=== PATIENT | male | born 1995 | race African-American/Black ===

== ENCOUNTER 2016-05-04 11:48 | Emergency (ER) | payer BC ==
[~2016-05-04] VITALS: Ht 170.2 cm; Wt 72.6 kg
[~2016-05-04 11:48] MED LIST: ALPR1T PO; BSP5T PO; CONCERTA; DICY20TA57 PO; HYOS0.1283 SL; LORA-404 PO; ONDA-42 SL; ONDA4TAB8 PO; SUCR1TAB23 PO; TRAM-42 PO; buspar PO
--- OUTSIDE RECORDS SUMMARY | 2016-05-04 11:54 | XMS REPORT | Continuity of Care Document ---
Author Author [facility] Organization [facility] Address Unknown Phone Unavailable Care Team Providers Care Entry Tech Name Role Phone NO, LOCAL PHYSICIAN PCP Unavailable Insurance Providers Payer Name Policy Number Subscriber Name Relationship [facility] [id number] Tito Rodriguez Sr 18 Father Advance Directives Directive Response Recorded Date/Time Advance Directives No 02/06/16 10:55am Organ Donor Yes 07/09/15 2:02pm Resuscitation Status Full Code 02/06/16 10:55am Chief Complaint and Reason for Visit Chief Complaint Lower Extremity Reason for Visit Sprain of knee Problems Active Problems Medical Problem Onset Date Status Alcohol use Unknown Acute Anxiety Unknown Acute Dehydration Unknown Acute Gastritis Unknown Acute Irritable bowel syndrome Unknown Acute Nausea and vomiting Unknown Acute Nausea and vomiting Unknown Acute Sprain of knee Unknown Acute Vomiting Unknown Acute Medications Current Home Medications Medication Dose Units Route Directions Days/Qty Instructions Start Date Tramadol Hcl 50 Mg 50 Mg Oral Three Times A Day as needed for Pain 02/06/16 Past Home Medications Medication Directions Ordered Status [Concerta] , Daily 01/14/11 Discontinued Alprazolam 1 Mg Tab, 1 Mg Oral Every 6 Hours 10/06/13 Discontinued Sucralfate 1 Gm Tablet, 1 Gm Oral Before Meals 01/05/14 Discontinued Dicyclomine Hcl 20 Mg Tablet, 1 Each Oral Three Times A Day And Prn 01/05/14 Discontinued [Buspar ] , 5 Mg Oral Three Times A Day 07/09/15 Discontinued Lorazepam 0.5 Mg Tablet, 0.5 Mg Oral Twice A Day as needed for Anxiety Discontinued Ondansetron 4 Mg Tab.rapdis, 4 Mg Oral Every 4HRS for Nausea/Vomiting Discontinued Hyoscyamine Sulfate 0.125 Mg Tab.subl, 1-2 Tab Sublingual Every 4HRS for Abdominal Pain 09/30/15 Discontinued Ondansetron 4 Mg Tab.rapdis, 4 Mg Oral Every 4HRS for Nausea/Vomiting Discontinued Hyoscyamine Sulfate 0.125 Mg Tab.subl, 1-2 Tab Sublingual Every 4HRS for Abdominal Pain 09/30/15 Discontinued Social History Social History Problem Response Recorded Date/Time Alcohol Use Occasionally Uses 09/30/2015 9:49am Recreational Drug Use Y THC 09/30/2015 9:49am Recent Foreign Travel No 02/06/2016 10:50am Recent Infectious Disease Exposure No 02/06/2016 10:50am Hospitalization with Isolation Denies 02/06/2016 10:50am Smoking Status Current Everyday Smoker 02/06/2016 10:55am Type Used Cigarettes 09/30/2015 9:49am Recent Hopitalizations No 02/06/2016 10:55am Hospitalization with Isolation Denies 02/06/2016 10:50am Query Response Start Date Stop Date Smoking Status Current Everyday Smoker Hospital Discharge Instructions No hospital discharge instructions. Plan of Care Discharge Date 02/06/16 11:46am Disposition 01 HOME, SELF-CARE Condition at Discharge Stable Instructions/Education Provided Knee Sprain (DC) Forms Provided Local Medical Staff Listing Work Release Form Prescriptions See Medication Section Referrals NO,LOCAL PHYSICIAN - Primary Care Physician Additional Instructions/Education 1. Wear the knee immobilizer when you're up walking 2. Follow-up with one of the physicians listed week to schedule an MRI Functional Status No functional status results. Allergies, Adverse Reactions, Alerts No known allergies. Immunizations No immunization records. Vital Signs Acute Vital Signs Vital Response Date/Time Temperature (Fahrenheit) 97 degrees F (97.6 - 99.5) 02/06/2016 10:50am Temperature (Calculated Celsius) 36.1140 degrees C (36.4 - 37.5) 02/06/2016 10:50am Temperature Source Temporal 02/06/2016 10:50am Pulse Rate (adult) 68 bpm (60 - 90) 02/06/2016 10:50am Respiratory Rate 18 bpm (12 - 24) 02/06/2016 10:50am O2 Sat by Pulse Oximetry 98 % (88 - 100) 02/06/2016 10:50am Blood Pressure 132/71 mm Hg 02/06/2016 10:50am Blood Pressure Mean 91 mm Hg 02/06/2016 10:50am Pain Numeric Pain Scale 10-Worst Possible Pain 02/06/2016 11:02am Height (Feet) 5 feet 02/06/2016 10:50am Height (Inches) 7 inches 02/06/2016 10:50am Height (Calculated Centimeters) 170.834248 cm 02/06/2016 10:50am Weight (Pounds) 162 pounds 02/06/2016 10:50am Weight (Calculated Kilograms) 73.341066 kilograms 02/06/2016 10:50am Capillary Refill Capillary Refill Less Than 3 Seconds 02/06/2016 10:50am Height 5 ft 7 in Weight 162 lb Body Mass Index 25.4 kg/m^2 Results No known relevant diagnostic tests, laboratory data and/or discharge summary. Procedures No known history of procedures. Encounters Encounter Location Arrival/Admit Date Discharge/Depart Date Attending Provider Departed Emergency Room [facility] 02/06/16 10:44am 11:46am MELANY ZAYAS APRN Recent Diagnosis
[2016-05-04] MEDS ORDERED: FAMOTIDINE 20 MG (PEPCID) TABLET PO STA (12:52)
--- NOTE | 2016-05-04 12:59 | ED Psychosocial ---
General Chief Complaint: Psych/Social Disorder Stated Complaint: ANXIETY Nursing Triage Note: Pt c/o "feeling anxious" and having multiple anxiety attacks over past week. Pt advises he has been at [facility] in [place] for approx 15 days. Pt also c/o nausea/vomiting and upper abd pain off and on for several days. Pt reports vomiting occurs more often early in morning. Pt reports last anxiety attack earlier this morning. 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 Patient has had a long history of anxiety and depression. Patient has been at [facility] in [place] for approximately 15 days. States he normally smokes marijuana, but has not had any since entering [facility]. Does complain of nausea and vomiting as well as epigastric pain which is worse in the a.m. Worse with eating and spicy foods. Does complain of intermittent reflux. Denies any suicidal or homicidal ideation. Timing/Duration: other (2 weeks) Severity: moderate Associated Symptoms: anxiety, impaired concentration, insomnia Allergies and Home Medications Allergies Coded Allergies: No Known Drug Allergies (Unverified , 01/14/11) Home Medications Famotidine 20 Mg Tablet #30 20 MG PO BID Prescribed by: ANGELIA FORTUNE on 05/04/16 1409 Hydroxyzine HCl 25 Mg Tablet #30 25 MG PO Q6H PRN PRN ANXIETY Prescribed by: ANGELIA FORTUNE on 05/04/16 1409 Constitutional: No diaphoresis, No dizziness, No fever, No malaise EENTM: no symptoms reported Respiratory: no symptoms reported Cardiovascular: no symptoms reported Gastrointestinal: see HPI abdominal pain (epigastric abdominal pain)No constipation, No diarrhea, No hematemesis, heartburn loss of appetiteNo melena , nausea vomiting Genitourinary: no symptoms reported Musculoskeletal: no symptoms reported Skin: no symptoms reported Psychiatric/Neurological: See HPI Anxiety Depressed All Other Systems Reviewed Negative Unless Noted: Yes (Negative excepted noted.) Past Ymmnbmi-Vksazs-Zatruu Hx Patient Social History Alcohol Use: Denies Use 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 @ [facility] ) Drug of Choice: marijuana Smoking Status: Current Everyday Smoker Type Used: Cigarettes Recent Foreign Travel: No Contact w/Someone Who Travel: No Recent Infectious Disease Expo: No Recent Hopitalizations: No Immunizations Up To Date Tetanus Booster (TDap): Unknown Date of Influenza Vaccine: Jan 13, 2014 Seasonal Allergies Seasonal Allergies: No Surgeries HX Surgeries: Yes (tubes in ears) Surgeries: Ear Surgery Respiratory Hx Respiratory Disorders: No Respiratory Disorders: Asthma Cardiovascular Hx Cardiac Disorders: No Neurological Hx Neurological Disorders: No Reproductive System Hx Reproductive Disorders: No Genitourinary Hx Genitourinary Disorders: No Gastrointestinal Hx Gastrointestinal Disorders: No Gastrointestinal Disorders: Gastroesophageal Reflux Musculoskeletal Hx Musculoskeletal Disorders: No Endocrine Hx Endocrine Disorders: No HEENT HX ENT Disorders: No Cancer Hx Cancer: No Psychosocial Hx Psychiatric Problems: Yes Behavioral Health Disorders: Anxiety, Depression Integumentary HX Skin/Integumentary Disorder: No Blood Transfusions Hx Blood Disorders: No Reviewed Nursing Assessment Reviewed/Agree w Nursing PMH: Yes Family Medical History Significant Family History: No Pertinent Family Hx Physical Exam Vital Signs Vital Sign - Last 12Hours 05/04/16 12:04 Temp 98.0 Pulse 73 Resp 18 B/P 142/90 Pulse Ox 99 O2 Delivery Room Air Capillary Refill : Less Than 3 Seconds General Appearance: WD/WN no apparent distress HEENT: PERRL/EOMI pharynx normal Neck: supple normal inspection Respiratory: lungs clear normal breath sounds no respiratory distress Cardiovascular: regular rate, rhythm no murmur Gastrointestinal: normal bowel sounds soft no organomegalyNo distended, No guarding, No rebound, tenderness (epigastric tenderness) Extremities: normal inspection normal capillary refill Neurologic/Psychiatric: cardiac monitor technician II-XII nml as tested no motor/sensory deficits alert oriented x 3 depressed affect Appearance/Memory: appropriate appearance appropriate insight neat no memory impairment Behavior/Eye Contact: cooperative avoids eye contact decreased rate of speech Thoughts/Hallucinations: normal thought pattern no apparent hallucination Skin: normal color warm/dry Progress/Results/Core Measures Results/Orders Lab Results Laboratory Tests Test 05/04/16 13:18 05/04/16 13:24 Range/Units Acetaminophen Level < 10 L 10-30 UG/ML Alanine Aminotransferase (ALT/SGPT) 53 0-55 U/L Albumin 4.6 H 3.2-4.5 G/DL Alkaline Phosphatase 67 40-136 U/L Anion Gap 10 5-14 MMOL/L Aspartate Amino Transf (AST/SGOT) 126 H 5-34 U/L BUN/Creatinine Ratio 20 Basophils # (Auto) 0.0 0.0-0.1 10^3/uL Basophils (%) (Auto) 0 0-10 % Blood Urea Nitrogen 17 7-18 MG/DL Calcium Level 9.3 8.5-10.1 MG/DL Carbon Dioxide Level 25 21-32 MMOL/L Chloride Level 103 98-107 MMOL/L Creatinine 0.83 0.60-1.30 MG/DL Eosinophils # (Auto) 0.0 0.0-0.3 10^3/uL Eosinophils (%) (Auto) 1 0-10 % Estimat Glomerular Filtration Rate > 60 Glucose Level 93 70-105 MG/DL Hematocrit 45 40-54 % Hemoglobin 15.8 13.3-17.7 G/DL Lymphocytes # (Auto) 2.5 1.0-4.0 X 10^3 Lymphocytes (%) (Auto) 35 12-44 % Mean Corpuscular Hemoglobin 31 25-34 PG Mean Corpuscular Hemoglobin Concent 35 32-36 G/DL Mean Corpuscular Volume 89 80-99 FL Mean Platelet Volume 8.8 7.4-10.4 FL Monocytes # (Auto) 0.8 0.0-1.0 X 10^3 Monocytes (%) (Auto) 11 0-12 % Neutrophils # (Auto) 3.8 1.8-7.8 X 10^3 Neutrophils (%) (Auto) 53 42-75 % Platelet Count 235 130-400 10^3/uL Potassium Level 4.7 3.6-5.0 MMOL/L Red Blood Count 5.04 4.35-5.85 10^6/uL Red Cell Distribution Width 12.1 10.0-14.5 % Salicylates Level < 5.0 L 5.0-20.0 MG/DL Serum Alcohol < 10 <10 MG/DL Sodium Level 138 135-145 MMOL/L TSH [place] Testing 0.46 0.35-4.94 UIU/ML Total Bilirubin 0.5 0.1-1.0 MG/DL Total Protein 7.6 6.4-8.2 G/DL White Blood Count 7.2 4.3-11.0 10^3/uL Ur Tricyclic Antidepressants Screen NEGATIVE NEGATIVE Urine Amorphous Sediment LARGE DAR PHOSPHATE H /LPF Urine Amphetamines Screen NEGATIVE NEGATIVE Urine Bacteria FEW H /HPF Urine Barbiturates Screen NEGATIVE NEGATIVE Urine Benzodiazepines Screen NEGATIVE NEGATIVE Urine Bilirubin NEGATIVE NEGATIVE Urine Cannabinoids Screen POSITIVE H NEGATIVE Urine Casts NONE /LPF Urine Clarity SLIGHTLY CLOUDY Urine Cocaine Screen NEGATIVE NEGATIVE Urine Color YELLOW Urine Crystals PRESENT H /LPF Urine Culture Indicated NO Urine Glucose (UA) NEGATIVE NEGATIVE Urine Ketones NEGATIVE NEGATIVE Urine Leukocyte Esterase NEGATIVE NEGATIVE Urine Methadone Screen NEGATIVE NEGATIVE Urine Methamphetamines Screen NEGATIVE NEGATIVE Urine Mucus NEGATIVE /LPF Urine Nitrite NEGATIVE NEGATIVE Urine Opiates Screen NEGATIVE NEGATIVE Urine Oxycodone Screen NEGATIVE NEGATIVE Urine Phencyclidine Screen NEGATIVE NEGATIVE Urine Propoxyphene Screen NEGATIVE NEGATIVE Urine Protein NEGATIVE NEGATIVE Urine RBC NONE /HPF Urine RBC (Auto) NEGATIVE NEGATIVE Urine Specific [place] 1.015 L 1.016-1.022 Urine Squamous Epithelial Cells 2-5 /HPF Urine Urobilinogen NORMAL NORMAL MG/DL Urine WBC NONE /HPF Urine pH 8 5-9 My Orders Orders-ANGELIA FORTUNE PA Lidocaine 2% Viscous 15 Ml (Xylocaine Vi (05/04/16 13:00) Famotidine Tablet (Pepcid Tablet) (05/04/16 12:52) Antacid Suspension (Mylanta Suspension (05/04/16 13:00) Acetaminophen (05/04/16 12:52) Alcohol (05/04/16 12:52) Cbc With Automated Diff (05/04/16 12:52) Comprehensive Metabolic Panel (05/04/16 12:52) Drug Screen Stat (Urine) (05/04/16 12:52) Thyroid Analyzer (05/04/16 12:52) Ua Culture If Indicated (05/04/16 12:52) Hydroxyzine Oral (Vistaril Capsule) (05/04/16 13:00) Ekg Tracing (05/04/16 12:54) Salicylate (05/04/16 12:54) Medications Given in ED Current Medications Medications Dose Ordered Sig/Mario Route Start Time Stop Time Status Last Admin Dose Admin Al Hydrox/Mg Hydrox/Simethicone 30 ml ONCE ONCE PO 05/04/16 13:00 05/04/16 13:01 DC 05/04/16 13:10 30 ML Hydroxyzine Pamoate 25 mg ONCE ONCE PO 05/04/16 13:00 05/04/16 13:01 DC 05/04/16 13:10 25 MG Lidocaine HCl 15 ml ONCE ONCE PO 05/04/16 13:00 05/04/16 13:01 DC 05/04/16 13:10 15 ML Vital Signs/I&O Vital Sign - Last 12Hours 05/04/16 12:04 Temp 98.0 Pulse 73 Resp 18 B/P 142/90 Pulse Ox 99 O2 Delivery Room Air Blood Pressure Mean: 107 ECG Initial ECG Impression Date: May 04, 2016 Initial ECG Impression Time: 13:21 Initial ECG Rate: 74 Initial ECG Rhythm: Normal Sinus Initial ECG Intervals: Normal Initial ECG Impression: Normal Initial ECG Comparisson: No Previous ECG Available Comment sinus rhythm. No STEMI or arrhythmia noted. ECG reviewed and discussed with Dr. Rodriguez. Departure Communication Progress Notes Patient reports feeling much better after medications. All laboratory findings discussed with the patient. Proceed with discharge to home. All return precautions were discussed with the patient as described in the discharge instructions of this report. Patient voices understanding and agrees with the treatment plan. Impression Impression: Primary Impression: Gastritis Qualified Code: K29.00 - Acute gastritis without bleeding Additional Impression: Anxiety Disposition: 01 HOME, SELF-CARE Condition: Improved Departure-Patient Inst. Decision time for Depature: 14:07 Referrals: [facility] (PCP/Family) Primary Care Physician Patient Instructions: Anxiety, Adult (DC), Gastritis (DC), Ulcer and Gastritis Diet Add. Discharge Instructions: All discharge instructions reviewed with patient and/or family. Voiced understanding. Medications as instructed. Follow-up with the family practitioner and behavioral health facility for recheck and for further medication management/counseling. Call for appointment times. Continue usual home medications. Return to the emergency department for worsened symptoms or any other concerns. If any thoughts of harming yourself or others, contact 911 , the crisis line ([phone]), Police Department, or return immediately to the emergency department. Scripts Famotidine (Pepcid)20 Mg [id number] Mg PO BID #30 TAB Ref 0 Prov:ANGELIA FORTUNE 05/04/16 Hydroxyzine HCl 25 Mg [id number] Mg PO Q6H PRN ANXIETY #30 TAB Ref 0 Prov:ANGELIA FORTUNE 05/04/16 ANGELIA FORTUNE May 04, 2016 12:59
[2016-05-04] MEDS ORDERED: hydrOXYzine (VISTARIL) 25 MG CAP PO ONE (13:00)
[2016-05-04] MEDS ORDERED: LIDOCAINE 2% VISCOUS 15 ML UDC PO ONE (13:00)
[2016-05-04] MEDS ORDERED: ANTACID SUSP 30 ML UDC (MYLANTA) PO ONE (13:00)
[2016-05-04 13:27] LABS: BASOPHILS % (AUTO) 0 % (0-10); EOSINOPHILS % (AUTO) 1 % (0-10); LYMPHOCYTES # (AUTO) 2.5 X 10^3 (1.0-4.0); LYMPHOCYTES % (AUTO) 35 % (12-44); MEAN CORPUSCULAR HEMOGLOBIN 31 PG (25-34); MEAN CORPUSCULAR HGB CONC 35 G/DL (32-36); MEAN CORPUSCULAR VOLUME 89 FL (80-99); MEAN PLATELET VOLUME 8.8 FL (7.4-10.4); MONOCYTES # (AUTO) 0.8 X 10^3 (0.0-1.0); MONOCYTES % (AUTO) 11 % (0-12); NEUTROPHILS # (AUTO) 3.8 X 10^3 (1.8-7.8); NEUTROPHILS % (AUTO) 53 % (42-75); PLATELET COUNT 235 10^3/uL (130-400); RED BLOOD COUNT 5.04 10^6/uL (4.35-5.85); RED CELL DISTRIBUTION WIDTH 12.1 % (10.0-14.5); WHITE BLOOD COUNT 7.2 10^3/uL (4.3-11.0)
[2016-05-04 13:31] LABS: BILIRUBIN,URINE NEGATIVE (NEGATIVE); KETONES,URINE NEGATIVE (NEGATIVE); LEUKOCYTE ESTERASE ,URINE NEGATIVE (NEGATIVE); NITRITE,URINE NEGATIVE (NEGATIVE); PH,URINE 8 (5-9); PROTEIN,URINE NEGATIVE (NEGATIVE); UROBILINOGEN,URINE NORMAL (NORMAL)
[2016-05-04 13:48] LABS: ALANINE AMINOTRANSFERASE 53 U/L (0-55); ALBUMIN 4.6 G/DL (3.2-4.5); ANION GAP 10 MMOL/L (5-14); ASPARTATE AMINO TRANSFERASE 126 U/L (5-34); BILIRUBIN,TOTAL 0.5 MG/DL (0.1-1.0); BLOOD UREA NITROGEN 17 MG/DL (7-18); BUN/CREATININE RATIO 20; CALCIUM 9.3 MG/DL (8.5-10.1); CARBON DIOXIDE 25 MMOL/L (21-32); CHLORIDE 103 MMOL/L (98-107); CREATININE SERUM 0.83 MG/DL (0.60-1.30); GFR ESTIMATED > 60; GLUCOSE 93 MG/DL (70-105); POTASSIUM 4.7 MMOL/L (3.6-5.0); SALICYLATE < 5.0 MG/DL (5.0-20.0); SODIUM 138 MMOL/L (135-145); TOTAL PROTEIN 7.6 G/DL (6.4-8.2)
[2016-05-04 13:50] LABS: ACETAMINOPHEN < 10 UG/ML (10-30); ALCOHOL < 10 MG/DL (<10)
[2016-05-04] MEDS ORDERED: FAMO-119 PO (14:09)
[2016-05-04] MEDS ORDERED: HYDR-700 PO (14:09)
[2016-05-04 14:24] VITALS: BP 123/88
== END 2016-05-04 14:24 | disposition home or self-care (01) ==
LOC: EDUNIT# 11:48 → ER 11:51
DX: K29.70 Gastritis, unspecified, without bleeding (principal); F41.9 Anxiety disorder, unspecified; F17.210 Nicotine dependence, cigarettes, uncomplicated
CPT/HCPCS: 36415; 80053; 80306; 80320; 80329; 81000; 84443; 85025; 93005

== ENCOUNTER 2016-05-16 13:25 | Emergency (ER) | payer BC ==
[~2016-05-16] VITALS: Ht 170.2 cm; Wt 74.8 kg
[~2016-05-16 13:25] MED LIST changes: +FAMO-119 PO; +HYDR-700 PO
--- OUTSIDE RECORDS SUMMARY | 2016-05-16 13:32 | XMS REPORT | Continuity of Care Document ---
Author Author [facility] Organization [facility] Address Unknown Phone Unavailable Care Team Providers Care Membership Administrator Name Role Phone NO, LOCAL PHYSICIAN PCP Unavailable Insurance Providers Payer Name Policy Number Subscriber Name Relationship [facility] [id number] Tito Rodriguez Sr 19 Father Advance Directives [...] 7 inches 02/06/2016 10:50am Height (Calculated Centimeters) 170.003103 cm 02/06/2016 10:50am Weight (Pounds) 162 pounds 02/06/2016 10:50am Weight (Calculated Kilograms) 73.332154 kilograms 02/06/2016 10:50am Capillary Refill Capillary Refill Less Than 3 Seconds 02/06/2016 10:50am Height 5 ft 7 in Weight 162 lb Body Mass Index 25.4 kg/m^2 Results No known relevant diagnostic tests, laboratory data and/or discharge summary. Procedures No known history of procedures. Encounters Encounter Location Arrival/Admit Date Discharge/Depart Date Attending Provider Departed Emergency Room [facility] 02/06/16 10:44am 11:46am MELANY ZAYAS APRN Recent Diagnosis
[2016-05-16] MEDS ORDERED: LIDOCAINE 2% VISCOUS 15 ML UDC PO ONE (15:15)
[2016-05-16] MEDS ORDERED: ANTACID SUSP 30 ML UDC (MYLANTA) PO ONE (15:15)
--- NOTE | 2016-05-16 15:27 | ED Abdominal Pain ---
General Chief Complaint: Abdominal/GI Problems Stated Complaint: ABD PAIN/MED REFILL Nursing Triage Note: MID ABD PAIN STARTING YESTERDAY. THINKS IT IS RELANTED TO HIS NERVES AND BEING OUT OF HIS HYDROXAZINE THAT WAS PRESCRIBED IN THIS ER. DOES NOT HAVE A PRIMARY AND JUST GOT OUT OF [facility]. Sepsis Screen: No Definite Risk Source of Information: Patient Exam Limitations: No Limitations History of Present Illness Time Seen By Provider: 15:27 Initial Comments Patient is currently being treated addiction treatment Center for marijuana use. He comes in today with epigastric pain and anxiety. He is out of his Vistaril which he states helps. Timing/Duration: 1-2 Days Severity/Quality: Burning, Cramping Location: Epigastric Radiation: No Radiation Activities at Onset: None Associated Symptoms: No Nausea/Vomiting Allergies and Home Medications Allergies Coded Allergies: No Known Drug Allergies (Unverified , 01/14/11) Home Medications Famotidine 20 Mg Tablet #30 20 MG PO BID Prescribed by: ANGELIA FORTUNE on 05/04/16 1409 Review of Systems Constitutional: see HPI EENTM: No Symptoms Reported Respiratory: No Symptoms Reported Cardiovascular: No Symptoms Reported Gastrointestinal: See HPI Abdominal Pain Genitourinary: No Symptoms Reported Musculoskeletal: no symptoms reported Skin: no symptoms reported Psychiatric/Neurological: No Symptoms Reported Endocrine: No Symptoms Reported Hematologic/Lymphatic: No Symptoms Reported Past Dgkicri-Keyjgu-Mubcib Hx Patient Social History Alcohol Use: Denies Use Recreational Drug Use: Yes (HX OF POT) Drug of Choice: marijuana Smoking Status: Current Everyday Smoker Type Used: Cigarettes Recent Foreign Travel: No Contact w/Someone Who Travel: No Recent Infectious Disease Expo: No Recent Hopitalizations: No Immunizations Up To Date Tetanus Booster (TDap): Unknown Date of Influenza Vaccine: Jan 13, 2014 Seasonal Allergies Seasonal Allergies: No Surgeries HX Surgeries: Yes (tubes in ears) Surgeries: Ear Surgery Respiratory Hx Respiratory Disorders: No Respiratory Disorders: Asthma Cardiovascular Hx Cardiac Disorders: No Neurological Hx Neurological Disorders: No Reproductive System Hx Reproductive Disorders: No Genitourinary Hx Genitourinary Disorders: No Gastrointestinal Hx Gastrointestinal Disorders: No Gastrointestinal Disorders: Gastroesophageal Reflux Musculoskeletal Hx Musculoskeletal Disorders: No Endocrine Hx Endocrine Disorders: No HEENT HX ENT Disorders: No Cancer Hx Cancer: No Psychosocial Hx Psychiatric Problems: Yes Behavioral Health Disorders: Anxiety, Depression Integumentary HX Skin/Integumentary Disorder: No Blood Transfusions Hx Blood Disorders: No Family Medical History Significant Family History: No Pertinent Family Hx Physical Exam Vital Signs VS - Last 72 Hours, by Label 05/16/16 14:36 Temp 97.6 Pulse 76 Resp 16 B/P 143/96 Pulse Ox 100 Capillary Refill : Less Than 3 Seconds General Appearance: WD/WN no apparent distress HEENT: PERRL/EOMI normal ENT inspection Neck: non-tender full range of motion Respiratory: normal breath sounds no respiratory distress no accessory muscle use Cardiovascular: regular rate, rhythm no murmur Gastrointestinal: normal bowel sounds soft tenderness Extremities: normal range of motion non-tender normal inspection Neurologic/Psychiatric: alert normal mood/affect oriented x 3 (so what EMS) Skin: normal color warm/dry Progress/Results/Core Measures Results/Orders Lab Results Laboratory Tests Test 05/16/16 15:46 05/16/16 16:15 Range/Units Alanine Aminotransferase (ALT/SGPT) 70 H 0-55 U/L Albumin 4.6 H 3.2-4.5 G/DL Alkaline Phosphatase 66 40-136 U/L Anion Gap 11 5-14 MMOL/L Aspartate Amino Transf (AST/SGOT) 33 5-34 U/L BUN/Creatinine Ratio 15 Basophils # (Auto) 0.0 0.0-0.1 10^3/uL Basophils (%) (Auto) 0 0-10 % Blood Urea Nitrogen 13 7-18 MG/DL Calcium Level 9.5 8.5-10.1 MG/DL Carbon Dioxide Level 26 21-32 MMOL/L Chloride Level 103 98-107 MMOL/L Creatinine 0.86 0.60-1.30 MG/DL Eosinophils # (Auto) 0.1 0.0-0.3 10^3/uL Eosinophils (%) (Auto) 1 0-10 % Estimat Glomerular Filtration Rate > 60 Glucose Level 97 70-105 MG/DL Hematocrit 46 40-54 % Hemoglobin 16.0 13.3-17.7 G/DL Lipase 8 8-78 U/L Lymphocytes # (Auto) 2.0 1.0-4.0 X 10^3 Lymphocytes (%) (Auto) 19 12-44 % Mean Corpuscular Hemoglobin 31 25-34 PG Mean Corpuscular Hemoglobin Concent 35 32-36 G/DL Mean Corpuscular Volume 89 80-99 FL Mean Platelet Volume 8.7 7.4-10.4 FL Monocytes # (Auto) 1.4 H 0.0-1.0 X 10^3 Monocytes (%) (Auto) 13 H 0-12 % Neutrophils # (Auto) 7.3 1.8-7.8 X 10^3 Neutrophils (%) (Auto) 67 42-75 % Platelet Count 216 130-400 10^3/uL Potassium Level 4.4 3.6-5.0 MMOL/L Red Blood Count 5.12 4.35-5.85 10^6/uL Red Cell Distribution Width 12.6 10.0-14.5 % Sodium Level 140 135-145 MMOL/L Total Bilirubin 0.7 0.1-1.0 MG/DL Total Protein 7.7 6.4-8.2 G/DL White Blood Count 10.8 4.3-11.0 10^3/uL My Orders Orders-MELANY ZAYAS APRN Antacid Suspension (Mylanta Suspension (05/16/16 15:15) Lidocaine 2% Viscous 15 Ml (Xylocaine Vi (05/16/16 15:15) Cbc With Automated Diff (05/16/16 15:27) Lipase (05/16/16 15:27) Ua Culture If Indicated (05/16/16 15:27) Hydroxyzine Oral (Vistaril Capsule) (05/16/16 15:45) Comprehensive Metabolic Panel (05/16/16 16:09) Medications Given in ED Current Medications Medications Dose Ordered Sig/Mario Route Start Time Stop Time Status Last Admin Dose Admin Al Hydrox/Mg Hydrox/Simethicone 30 ml ONCE ONCE PO 05/16/16 15:15 05/16/16 15:16 DC 05/16/16 15:13 30 ML Hydroxyzine Pamoate 25 mg ONCE ONCE PO 05/16/16 15:45 05/16/16 15:46 DC 05/16/16 15:51 25 MG Lidocaine HCl 15 ml ONCE ONCE PO 05/16/16 15:15 05/16/16 15:16 DC 05/16/16 15:12 15 ML Vital Signs/I&O Vital Sign - Last 12Hours 05/16/16 14:36 Temp 97.6 Pulse 76 Resp 16 B/P 143/96 Pulse Ox 100 Blood Pressure Mean: 112 Departure Communication Progress Notes 1632-patient has improved after GI cocktail and Vistaril. Impression Impression: Primary Impression: Gastritis Additional Impression: Anxiety Disposition: 01 HOME, SELF-CARE Condition: Stable Departure-Patient Inst. Decision time for Depature: 16:33 Referrals: NO,LOCAL PHYSICIAN (PCP/Family) Primary Care Physician Patient Instructions: NO INSTRUCTIONS GIVEN Add. Discharge Instructions: 1. Plenty of fluids 2. Medication as directed 3. See your doctor as soon as possible All discharge instructions reviewed with patient and/or family. Voiced understanding. Scripts Sucralfate (Carafate)1 Gm Tablet1 Gm PO ACHS #40 TAB Prov:MELANY ZAYAS APRN 05/16/16 Hydroxyzine Pamoate (Vistaril)25 Mg [id number] Mg PO Q8H PRN ANXIETY #30 CAP Prov:MELANY ZAYAS APRN 05/16/16 MELANY ZAYSA APRN May 16, 2016 15:27
[2016-05-16] MEDS ORDERED: hydrOXYzine (VISTARIL) 25 MG CAP PO ONE (15:45)
[2016-05-16 15:52] LABS: BASOPHILS % (AUTO) 0 % (0-10); EOSINOPHILS # (AUTO) 0.1 10^3/uL (0.0-0.3); EOSINOPHILS % (AUTO) 1 % (0-10); LYMPHOCYTES % (AUTO) 19 % (12-44); MEAN CORPUSCULAR HEMOGLOBIN 31 PG (25-34); MEAN CORPUSCULAR HGB CONC 35 G/DL (32-36); MEAN CORPUSCULAR VOLUME 89 FL (80-99); MEAN PLATELET VOLUME 8.7 FL (7.4-10.4); MONOCYTES # (AUTO) 1.4 X 10^3 (0.0-1.0); MONOCYTES % (AUTO) 13 % (0-12); NEUTROPHILS # (AUTO) 7.3 X 10^3 (1.8-7.8); NEUTROPHILS % (AUTO) 67 % (42-75); PLATELET COUNT 216 10^3/uL (130-400); RED BLOOD COUNT 5.12 10^6/uL (4.35-5.85); RED CELL DISTRIBUTION WIDTH 12.6 % (10.0-14.5); WHITE BLOOD COUNT 10.8 10^3/uL (4.3-11.0)
[2016-05-16 16:28] LABS: ALANINE AMINOTRANSFERASE 70 U/L (0-55); ALBUMIN 4.6 G/DL (3.2-4.5); ANION GAP 11 MMOL/L (5-14); ASPARTATE AMINO TRANSFERASE 33 U/L (5-34); BILIRUBIN,TOTAL 0.7 MG/DL (0.1-1.0); BLOOD UREA NITROGEN 13 MG/DL (7-18); BUN/CREATININE RATIO 15; CALCIUM 9.5 MG/DL (8.5-10.1); CARBON DIOXIDE 26 MMOL/L (21-32); CHLORIDE 103 MMOL/L (98-107); CREATININE SERUM 0.86 MG/DL (0.60-1.30); GFR ESTIMATED > 60; GLUCOSE 97 MG/DL (70-105); POTASSIUM 4.4 MMOL/L (3.6-5.0); SODIUM 140 MMOL/L (135-145); TOTAL PROTEIN 7.7 G/DL (6.4-8.2)
[2016-05-16 16:28] LABS: BILIRUBIN,URINE NEGATIVE (NEGATIVE); KETONES,URINE NEGATIVE (NEGATIVE); LEUKOCYTE ESTERASE ,URINE NEGATIVE (NEGATIVE); NITRITE,URINE NEGATIVE (NEGATIVE); PH,URINE 6 (5-9); PROTEIN,URINE 1+ (NEGATIVE); UROBILINOGEN,URINE NORMAL (NORMAL)
[2016-05-16] MEDS ORDERED: SUCR1TAB36 PO (16:34)
[2016-05-16] MEDS ORDERED: HYDR25CA PO (16:34)
[2016-05-16 16:44] VITALS: BP 142/89
== END 2016-05-16 16:40 | disposition home or self-care (01) ==
LOC: EDUNIT# 13:25 → ER 13:27
DX: K29.70 Gastritis, unspecified, without bleeding (principal); F41.9 Anxiety disorder, unspecified; F12.21 Cannabis dependence, in remission; F17.210 Nicotine dependence, cigarettes, uncomplicated
CPT/HCPCS: 36415; 80053; 81000; 83690; 85025; 99282

== ENCOUNTER 2016-10-19 13:51 | Emergency (ER) | payer BC ==
[~2016-10-19] VITALS: Ht 170.2 cm; Wt 79.4 kg
[~2016-10-19 13:51] MED LIST changes: +HYDR25CA PO; +SUCR1TAB36 PO
[2016-10-19] MEDS ORDERED: NS IV 1000 ML 1,000 ML IV ONE (14:43)
[2016-10-19] MEDS ORDERED: FAMOTIDINE 20MG/2ML IV (PEPCID) IV STA (14:43)
[2016-10-19] MEDS ORDERED: ONDANSETRON 4 MG/2 ML (SDV) Z0FRAN IVP ONE (14:45)
--- NOTE | 2016-10-19 14:45 | ED GI ---
General Chief Complaint: Abdominal/GI Problems Stated Complaint: STOMACH ACHE,VOMITING Nursing Triage Note: Pt reports abd pain and n/v x3 days. Sepsis Screen: No Definite Risk Source of Information: Patient Exam Limitations: No Limitations History of Present Illness Time Seen By Provider: 14:39 Initial Comments Here with report of nausea and vomiting for the past 3 days with epigastric discomfort. States that he believes is related to anxiety. He just got news a few days ago that his father was severely ill and may not have long to live. Does not report blood in vomit or stool. Denies dysuria. Denies fever or chills. Timing/Duration: 2-3 Days Severity/Quality: Moderate, Aching, Burning Location: Epigastric Radiation: No Radiation Activities at Onset: None Modifying Factors: Worsens With Eating Associated Symptoms: No Back Pain, No Chest Pain, Nausea/Vomiting, No Shortness of Air, No Weakness Allergies and Home Medications Allergies Coded Allergies: No Known Drug Allergies (Unverified , 01/14/11) Home Medications No Active Prescriptions or Reported Meds Review of Systems Constitutional: see HPI, No chills, No fever Respiratory: No Symptoms Reported Cardiovascular: No Symptoms Reported, Denies Chest Pain, Denies Lightheadedness Gastrointestinal: Denies Diarrhea, Nausea, Denies Rectal Bleeding, Vomiting Genitourinary: No Symptoms Reported Musculoskeletal: no symptoms reported Skin: no symptoms reported Psychiatric/Neurological: See HPI, Anxiety Endocrine: No Symptoms Reported All Other Systems Reviewed Negative Unless Noted: Yes Past Iyejkev-Vwwdru-Jhbazz Hx Patient Social History Alcohol Use: Denies Use Recreational Drug Use: No Drug of Choice: marijuana Smoking Status: Current Everyday Smoker Type Used: Cigarettes 2nd Hand Smoke Exposure: No Recent Foreign Travel: No Contact w/Someone Who Travel: No Recent Infectious Disease Expo: No Recent Hopitalizations: No Immunizations Up To Date Tetanus Booster (TDap): Unknown Date of Influenza Vaccine: Jan 13, 2014 Seasonal Allergies Seasonal Allergies: No Surgeries HX Surgeries: Yes (tubes in ears) Surgeries: Ear Surgery Respiratory Hx Respiratory Disorders: No Respiratory Disorders: Asthma Cardiovascular Hx Cardiac Disorders: No Neurological Hx Neurological Disorders: No Reproductive System Hx Reproductive Disorders: No Genitourinary Hx Genitourinary Disorders: No Gastrointestinal Hx Gastrointestinal Disorders: No Gastrointestinal Disorders: Gastroesophageal Reflux Musculoskeletal Hx Musculoskeletal Disorders: No Endocrine Hx Endocrine Disorders: No HEENT HX ENT Disorders: No Cancer Hx Cancer: No Psychosocial Hx Psychiatric Problems: Yes Behavioral Health Disorders: Anxiety, Depression Integumentary HX Skin/Integumentary Disorder: No Blood Transfusions Hx Blood Disorders: No Reviewed Nursing Assessment Reviewed/Agree w Nursing PMH: Yes Family Medical History Significant Family History: No Pertinent Family Hx Physical Exam Vital Signs VS - Last 72 Hours, by Label 10/19/16 13:59 Temp 97.2 Pulse 81 Resp 18 B/P (MAP) 110/79 Pulse Ox 99 O2 Delivery Room Air Capillary Refill : Less Than 3 Seconds General Appearance: WD/WN, no apparent distress HEENT: PERRL/EOMI, pharynx normal Neck: full range of motion, supple Respiratory: lungs clear, normal breath sounds Cardiovascular: regular rate, rhythm, no murmur Gastrointestinal: non tender, soft Extremities: non-tender, normal inspection Back: normal inspection, no CVA tenderness, no vertebral tenderness Neurologic/Psychiatric: alert, oriented x 3 Skin: normal color, warm/dry Focused Exam Lactic Acid Level Laboratory Tests Test 10/19/16 14:51 Lactic Acid Level 1.80 MMOL/L (0.50-2.00) Progress/Results/Core Measures Results/Orders Lab Results Laboratory Tests Test 10/19/16 14:36 10/19/16 14:51 Range/Units White Blood Count 5.1 4.3-11.0 10^3/uL Red Blood Count 5.07 4.35-5.85 10^6/uL Hemoglobin 15.8 13.3-17.7 G/DL Hematocrit 45 40-54 % Mean Corpuscular Volume 89 80-99 FL Mean Corpuscular Hemoglobin 31 25-34 PG Mean Corpuscular Hemoglobin Concent 35 32-36 G/DL Red Cell Distribution Width 12.5 10.0-14.5 % Platelet Count 212 130-400 10^3/uL Mean Platelet Volume 9.3 7.4-10.4 FL Neutrophils (%) (Auto) 44 42-75 % Lymphocytes (%) (Auto) 38 12-44 % Monocytes (%) (Auto) 16 H 0-12 % Eosinophils (%) (Auto) 2 0-10 % Basophils (%) (Auto) 0 0-10 % Neutrophils # (Auto) 2.3 1.8-7.8 X 10^3 Lymphocytes # (Auto) 1.9 1.0-4.0 X 10^3 Monocytes # (Auto) 0.8 0.0-1.0 X 10^3 Eosinophils # (Auto) 0.1 0.0-0.3 10^3/uL Basophils # (Auto) 0.0 0.0-0.1 10^3/uL Sodium Level 139 135-145 MMOL/L Potassium Level 4.0 3.6-5.0 MMOL/L Chloride Level 104 98-107 MMOL/L Carbon Dioxide Level 27 21-32 MMOL/L Anion Gap 8 5-14 MMOL/L Blood Urea Nitrogen 16 7-18 MG/DL Creatinine 0.95 0.60-1.30 MG/DL Estimat Glomerular Filtration Rate > 60 BUN/Creatinine Ratio 17 Glucose Level 100 70-105 MG/DL Calcium Level 9.5 8.5-10.1 MG/DL Total Bilirubin 0.8 0.1-1.0 MG/DL Aspartate Amino Transf (AST/SGOT) 17 5-34 U/L Alanine Aminotransferase (ALT/SGPT) 16 0-55 U/L Alkaline Phosphatase 60 40-136 U/L Total Protein 7.8 6.4-8.2 GM/DL Albumin 4.6 H 3.2-4.5 GM/DL Lipase 9 8-78 U/L Urine Color YELLOW Urine Clarity CLEAR Urine pH 6 5-9 Urine Specific [place] 1.025 H 1.016-1.022 Urine Protein 2+ H NEGATIVE Urine Glucose (UA) NEGATIVE NEGATIVE Urine Ketones NEGATIVE NEGATIVE Urine Nitrite NEGATIVE NEGATIVE Urine Bilirubin NEGATIVE NEGATIVE Urine Urobilinogen 1 NORMAL MG/DL Urine Leukocyte Esterase 1+ H NEGATIVE Urine RBC (Auto) 1+ H NEGATIVE Urine RBC NONE /HPF Urine WBC RARE /HPF Urine Squamous Epithelial Cells NONE /HPF Urine Crystals PRESENT H /LPF Urine Calcium Oxalate Crystals LARGE H /LPF Urine Bacteria NEGATIVE /HPF Urine Casts NONE /LPF Urine Mucus LARGE H /LPF Urine Culture Indicated NO Lactic Acid Level 1.80 0.50-2.00 MMOL/L My Orders Orders - ANA AVERY MD Cbc With Automated Diff (10/19/16 14:43) Comprehensive Metabolic Panel (10/19/16 14:43) Lactic Acid Analyzer (10/19/16 14:43) Ua Culture If Indicated (10/19/16 14:43) Saline Lock/Iv-Start (10/19/16 14:43) Ns Iv 1000 Ml (Sodium Chloride 0.9%) (10/19/16 14:43) Ondansetron Injection (Zofran Injectio (10/19/16 14:45) Famotidine Injection (Pepcid Injection) (10/19/16 14:43) Lipase (10/19/16 15:18) Medications Given in ED Current Medications Medications Dose Ordered Sig/Mario Route Start Time Stop Time Status Last Admin Dose Admin Ondansetron HCl 4 mg ONCE ONCE IVP 10/19/16 14:45 10/19/16 14:46 DC 10/19/16 14:50 4 MG Sodium Chloride 1,000 ml @ 0 mls/hr Q0M ONCE IV 10/19/16 14:43 10/19/16 14:44 DC 10/19/16 14:52 1,000 MLS/HR Vital Signs/I&O Vital Sign - Last 12Hours 10/19/16 13:59 Temp 97.2 Pulse 81 Resp 18 B/P (MAP) 110/79 Pulse Ox 99 O2 Delivery Room Air Blood Pressure Mean: 89 Progress Note : Progress Note Seen and evaluated. IV, labs, UA, normal saline 1 L bolus, Pepcid 20 mg IV and Zofran 4 mg IV ordered. Monitor patient. 1600: Overall markedly improved. Discharged home with return precautions. Patient verbalize understanding instructions and agreement with plan. Departure Impression Impression: Primary Impression: Nausea and vomiting Qualified Codes: R11.14 - Bilious vomiting Additional Impression: Anxiety Disposition: 01 HOME, SELF-CARE Condition: Improved Departure-Patient Inst. Decision time for Depature: 16:02 Referrals: NO,LOCAL PHYSICIAN (PCP/Family) Primary Care Physician Patient Instructions: Acute Abdomen (Belly Pain), Adult (DC), Nausea and Vomiting, Adult (DC) Add. Discharge Instructions: All discharge instructions reviewed with patient and/or family. Voiced understanding. Take medications as directed. You may take Pepcid or the generic famotidine 20 mg once or twice daily as needed for stomach upset. Drink plenty of fluids. Clear liquid diet for 24 hours and then advance as tolerated. Follow-up with your mental health specialist for further evaluation related to your anxiety. Return for worse pain, fever, vomiting, weakness, breathing problems or other concerns as needed. Scripts Ondansetron (Ondansetron Odt) 4 Mg Tab.rapdis 4 MG PO Q6H Y for NAUSEA/VOMITING, #8 TAB 0 Refills Prov: ANA AVERY MD 10/19/16 ANA AVERY MD Oct 19, 2016 14:45
[2016-10-19 14:50] LABS: BASOPHILS % (AUTO) 0 % (0-10); EOSINOPHILS # (AUTO) 0.1 10^3/uL (0.0-0.3); EOSINOPHILS % (AUTO) 2 % (0-10); LYMPHOCYTES # (AUTO) 1.9 X 10^3 (1.0-4.0); LYMPHOCYTES % (AUTO) 38 % (12-44); MEAN CORPUSCULAR HEMOGLOBIN 31 PG (25-34); MEAN CORPUSCULAR HGB CONC 35 G/DL (32-36); MEAN CORPUSCULAR VOLUME 89 FL (80-99); MEAN PLATELET VOLUME 9.3 FL (7.4-10.4); MONOCYTES # (AUTO) 0.8 X 10^3 (0.0-1.0); MONOCYTES % (AUTO) 16 % (0-12); NEUTROPHILS # (AUTO) 2.3 X 10^3 (1.8-7.8); NEUTROPHILS % (AUTO) 44 % (42-75); PLATELET COUNT 212 10^3/uL (130-400); RED BLOOD COUNT 5.07 10^6/uL (4.35-5.85); RED CELL DISTRIBUTION WIDTH 12.5 % (10.0-14.5); WHITE BLOOD COUNT 5.1 10^3/uL (4.3-11.0)
[2016-10-19 15:02] LABS: ALANINE AMINOTRANSFERASE 16 U/L (0-55); ALBUMIN 4.6 GM/DL (3.2-4.5); ANION GAP 8 MMOL/L (5-14); ASPARTATE AMINO TRANSFERASE 17 U/L (5-34); BILIRUBIN,TOTAL 0.8 MG/DL (0.1-1.0); BLOOD UREA NITROGEN 16 MG/DL (7-18); BUN/CREATININE RATIO 17; CALCIUM 9.5 MG/DL (8.5-10.1); CARBON DIOXIDE 27 MMOL/L (21-32); CHLORIDE 104 MMOL/L (98-107); CREATININE SERUM 0.95 MG/DL (0.60-1.30); GFR ESTIMATED > 60; GLUCOSE 100 MG/DL (70-105); SODIUM 139 MMOL/L (135-145); TOTAL PROTEIN 7.8 GM/DL (6.4-8.2)
[2016-10-19 15:03] LABS: BILIRUBIN,URINE NEGATIVE (NEGATIVE); KETONES,URINE NEGATIVE (NEGATIVE); LEUKOCYTE ESTERASE ,URINE 1+ (NEGATIVE); NITRITE,URINE NEGATIVE (NEGATIVE); PH,URINE 6 (5-9); PROTEIN,URINE 2+ (NEGATIVE); UROBILINOGEN,URINE 1 MG/DL (NORMAL)
[2016-10-19 15:15] LABS: CALCIUM OXALATE CRYSTALS,UR LARGE /LPF; WBC,URINE RARE /HPF
[2016-10-19] MEDS ORDERED: ONDA4TAB11 PO (16:03)
[2016-10-19 16:06] VITALS: BP 138/82
== END 2016-10-19 16:06 | disposition home or self-care (01) ==
LOC: EDUNIT# 13:51 → ER 13:54
DX: R11.2 Nausea with vomiting, unspecified (principal); F41.9 Anxiety disorder, unspecified; J45.909 Unspecified asthma, uncomplicated; K21.9 Gastro-esophageal reflux disease without esophagitis; F32.9 Major depressive disorder, single episode, unspecified; F17.210 Nicotine dependence, cigarettes, uncomplicated
CPT/HCPCS: 36415; 80053; 81000; 83605; 83690; 85025; 96361; 96374; 96375

== ENCOUNTER 2017-03-30 15:13 | Emergency (ER) | payer BC ==
[~2017-03-30] VITALS: Ht 170.2 cm; Wt 79.4 kg
[~2017-03-30 15:13] MED LIST changes: +ONDA4TAB11 PO
--- OUTSIDE RECORDS SUMMARY | 2017-03-30 15:19 | XMS REPORT | Continuity of Care Document ---
Author Author [facility] Organization [facility] Address Unknown Phone Unavailable Allergies Active Description Code Type Severity Reaction Onset Reported/Identified Relationship to Patient Clinical Status Yes No Known Drug Allergies [id number] Drug Allergy Unknown N/A 01/14/2011 Medications There is no data. Problems Date Dx Coded Attending Type Code Diagnosis Diagnosed By 09/07/2013 MELANY ZAYAS APRN Ot 300.00 ANXIETY STATE NOS 09/07/2013 MELANY ZAYAS PAINT TECHNICIAN Ot 787.03 VOMITING ALONE 10/06/2013 MELANY ZAYAS APRN Ot 787.01 NAUSEA WITH VOMITING 01/05/2014 MELANY ZAYAS PAINT TECHNICIAN Ot 535.50 UNSP GASTRITIS GASTRODUODENITIS W/O ME 01/05/2014 MELANY ZAYAS APRN Ot 564.1 IRRITABLE BOWEL SYNDROME 01/05/2014 MELANY ZAYAS PAINT TECHNICIAN Ot 789.06 ABDOMINAL PAIN, EPIGASTRIC 04/06/2014 BENNIE WEBSTER, ANA Lewis Ot 276.51 DEHYDRATION 04/06/2014 BENNIE WEBSTER, ANA [place] Ot 787.01 NAUSEA WITH VOMITING 07/09/2015 MELANY ZAYAS PAINT TECHNICIAN Ot F17.210 NICOTINE DEPENDENCE, CIGARETTES, UNCOMPL 07/09/2015 MELANY ZAYAS APRN Ot F41.9 ANXIETY DISORDER, UNSPECIFIED 07/10/2015 MELANY ZAYAS PAINT TECHNICIAN Ot F17.210 NICOTINE DEPENDENCE, CIGARETTES, UNCOMPL 07/10/2015 MELANY ZAYAS PAINT TECHNICIAN Ot F41.9 ANXIETY DISORDER, UNSPECIFIED 09/30/2015 MARILEE DO ALFREDO K Ot F12.10 CANNABIS ABUSE, UNCOMPLICATED 09/30/2015 KYAW HUNT DOA K Ot F17.210 NICOTINE DEPENDENCE, CIGARETTES, UNCOMPL 09/30/2015 MARILEE DO ALFREDO K Ot K29.70 GASTRITIS, UNSPECIFIED, WITHOUT BLEEDING 09/30/2015 KYAW HUNT DOA Marta Ot R10.13 EPIGASTRIC PAIN 10/01/2015 KYAW HUNT DOA K Ot F12.10 CANNABIS ABUSE, UNCOMPLICATED 10/01/2015 MARILEE CHATTERJEE ALFREDO Marta Ot F17.210 NICOTINE DEPENDENCE, CIGARETTES, UNCOMPL 10/01/2015 ALFREDO HUNT DO Marta Ot K29.70 GASTRITIS, UNSPECIFIED, WITHOUT BLEEDING 10/01/2015 MARILEE CHATTERJEEALFERDO Ot R10.13 EPIGASTRIC PAIN 02/06/2016 MELANY ZAYAS APRN Ot S83.92XA SPRAIN OF UNSPECIFIED SITE OF LEFT KNEE, 02/06/2016 MELANY ZAYAS APRN Ot S89.92XA UNSPECIFIED INJURY OF LEFT LOWER LEG, IN 02/06/2016 MELANY ZAYAS APRN Ot X50.9XXA OTHER AND UNSPECIFIED OVREXRTN OR STRNOU 02/06/2016 MELANY ZAYAS APRN Ot Y92.[address] 02/06/2016 MELANY ZAYAS APRN Ot Y93.61 ACTIVITY, SURINAMESE TACKLE FOOTBALL 02/06/2016 MELANY ZAYAS APRN Ot Y99.8 OTHER EXTERNAL CAUSE STATUS 05/04/2016 ANGELIA RODRIGUEZ Ot F17.210 NICOTINE DEPENDENCE, CIGARETTES, UNCOMPL 05/04/2016 ANGELIA RODRIGUEZ Ot F41.9 ANXIETY DISORDER, UNSPECIFIED 05/04/2016 ANGELIA RODRIGUEZ Ot K29.70 GASTRITIS, UNSPECIFIED, WITHOUT BLEEDING 05/04/2016 ANGELIA RODRIGUEZ Ot R11.2 NAUSEA WITH VOMITING, UNSPECIFIED 05/05/2016 ANGELIA RODRIGUEZ Ot F17.210 NICOTINE DEPENDENCE, CIGARETTES, UNCOMPL 05/05/2016 ANGELIA RODRIGUEZ Ot F41.9 ANXIETY DISORDER, UNSPECIFIED 05/05/2016 ANGELIA RODRIGUEZ Ot K29.70 GASTRITIS, UNSPECIFIED, WITHOUT BLEEDING 05/05/2016 ANGELIA RODRIGUEZ Ot R11.2 NAUSEA WITH VOMITING, UNSPECIFIED 05/16/2016 MELANY ZAYAS APRN Ot F12.21 CANNABIS DEPENDENCE, IN REMISSION 05/16/2016 MELANY ZAYAS APRN Ot F17.210 NICOTINE DEPENDENCE, CIGARETTES, UNCOMPL 05/16/2016 MELANY ZAYAS APRN Ot F41.9 ANXIETY DISORDER, UNSPECIFIED 05/16/2016 MELANY ZAYAS APRN Ot K29.70 GASTRITIS, UNSPECIFIED, WITHOUT BLEEDING 05/16/2016 MELANY ZAYAS PAINT TECHNICIAN Ot R10.13 EPIGASTRIC PAIN 05/17/2016 MELANY ZAYAS APRN Ot F12.21 CANNABIS DEPENDENCE, IN REMISSION 05/17/2016 MELANY ZAYAS PAINT TECHNICIAN Ot F17.210 NICOTINE DEPENDENCE, CIGARETTES, UNCOMPL 05/17/2016 MELANY ZAYAS APRN Ot F41.9 ANXIETY DISORDER, UNSPECIFIED 05/17/2016 MELANY ZAYAS PAINT TECHNICIAN Ot K29.70 GASTRITIS, UNSPECIFIED, WITHOUT BLEEDING 05/17/2016 MELANY ZAYAS PAINT TECHNICIAN Ot R10.13 EPIGASTRIC PAIN 10/19/2016 ANA AVERY MD Ot F17.210 NICOTINE DEPENDENCE, CIGARETTES, UNCOMPL 10/19/2016 ANA AVERY MD Ot F32.9 MAJOR DEPRESSIVE DISORDER, SINGLE EPISOD 10/19/2016 ANA AVERY MD Ot F41.9 ANXIETY DISORDER, UNSPECIFIED 10/19/2016 ANA AVERY MD Ot J45.909 UNSPECIFIED ASTHMA, UNCOMPLICATED 10/19/2016 ANA AVERY MD Ot K21.9 GASTRO-ESOPHAGEAL REFLUX DISEASE WITHOUT 10/19/2016 ANA AVERY MD Ot R11.2 NAUSEA WITH VOMITING, UNSPECIFIED 01/21/2017 ANGELIA RODRIGUEZ Ot F12.10 CANNABIS ABUSE, UNCOMPLICATED 01/21/2017 ANGELIA RODRIGUEZ Ot F17.210 NICOTINE DEPENDENCE, CIGARETTES, UNCOMPL 01/21/2017 ANGELIA RODRIGUEZ Ot F32.9 MAJOR DEPRESSIVE DISORDER, SINGLE EPISOD 01/21/2017 ANGELIA RODRIGUEZ Ot F41.9 ANXIETY DISORDER, UNSPECIFIED 01/21/2017 ANGELIA RODRIGUEZ Ot J45.909 UNSPECIFIED ASTHMA, UNCOMPLICATED 01/21/2017 ANGELIA RODRIGUEZ Ot K21.9 GASTRO-ESOPHAGEAL REFLUX DISEASE WITHOUT 01/21/2017 ANGELIA RODRIGUEZ Ot S61.411A LACERATION WITHOUT FOREIGN BODY OF RIGHT 01/21/2017 ANGELIA RODRIGUEZ Ot W26.8XXA CONTACT WITH OTHER SHARP OBJECT(S), NEC, Procedures There is no data. Results Test Result Range Complete blood count (CBC) with automated white blood cell (WBC) differential - 05/04/16 13:18 Blood leukocytes automated count (number/volume) 7.2 10*3/uL 4.3-11.0 Blood erythrocytes automated count (number/volume) 5.04 10*6/uL 4.35-5.85 Venous blood hemoglobin measurement (mass/volume) 15.8 g/dL 13.3-17.7 Blood hematocrit (volume fraction) 45 % 40-54 Automated erythrocyte mean corpuscular volume 89 [foz_us] 80-99 Automated erythrocyte mean corpuscular hemoglobin (mass per erythrocyte) 31 pg 25-34 Automated erythrocyte mean corpuscular hemoglobin concentration measurement ( mass/volume) 35 g/dL 32-36 Automated erythrocyte distribution width ratio 12.1 % 10.0-14.5 Automated blood platelet count (count/volume) 235 10*3/uL 130-400 Automated blood platelet mean volume measurement 8.8 [foz_us] 7.4-10.4 Automated blood neutrophils/100 leukocytes 53 % 42-75 Automated blood lymphocytes/100 leukocytes 35 % 12-44 Blood monocytes/100 leukocytes 11 % 0-12 Automated blood eosinophils/100 leukocytes 1 % 0-10 Automated blood basophils/100 leukocytes 0 % 0-10 Blood neutrophils automated count (number/volume) 3.8 10*3 1.8-7.8 Blood lymphocytes automated count (number/volume) 2.5 10*3 1.0-4.0 Blood monocytes automated count (number/volume) 0.8 10*3 0.0-1.0 Automated eosinophil count 0.0 10*3/uL 0.0-0.3 Automated blood basophil count (count/volume) 0.0 10*3/uL 0.0-0.1 Comprehensive metabolic panel - 05/04/16 13:18 Serum or plasma sodium measurement (moles/volume) 138 mmol/L 135-145 Serum or plasma potassium measurement (moles/volume) 4.7 mmol/L 3.6-5.0 Serum or plasma chloride measurement (moles/volume) 103 mmol/L 98-107 Carbon dioxide 25 mmol/L 21-32 Serum or plasma anion gap determination (moles/volume) 10 mmol/L 5-14 Serum or plasma urea nitrogen measurement (mass/volume) 17 mg/dL 7-18 Serum or plasma creatinine measurement (mass/volume) 0.83 mg/dL 0.60-1.30 Serum or plasma urea nitrogen/creatinine mass ratio 20 NRG Serum or plasma creatinine measurement with calculation of estimated glomerular filtration rate > NRG Serum or plasma glucose measurement (mass/volume) 93 mg/dL 70-105 Serum or plasma calcium measurement (mass/volume) 9.3 mg/dL 8.5-10.1 Serum or plasma total bilirubin measurement (mass/volume) 0.5 mg/dL 0.1-1.0 Serum or plasma alkaline phosphatase measurement (enzymatic activity/volume) 67 U/L 40-136 Serum or plasma aspartate aminotransferase measurement (enzymatic activity/ volume) 126 U/L 5-34 Serum or plasma alanine aminotransferase measurement (enzymatic activity/volume ) 53 U/L 0-55 Serum or plasma protein measurement (mass/volume) 7.6 g/dL 6.4-8.2 Serum or plasma albumin measurement (mass/volume) 4.6 g/dL 3.2-4.5 Serum or plasma thyrotropin measurement by detection limit <=0.05 miu/l (units/ volume) - 05/04/16 13:18 Serum or plasma thyrotropin measurement by detection limit <=0.05 miu/l (units/ volume) 0.46 u[iU]/mL 0.35-4.94 Serum or plasma salicylates measurement (mass/volume) - 05/04/16 13:18 Serum or plasma salicylates measurement (mass/volume) < mg/dL 5.0-20.0 Serum or plasma acetaminophen measurement (mass/volume) - 05/04/16 13:18 Serum or plasma acetaminophen measurement (mass/volume) < ug/mL 10-30 Serum or plasma ethanol measurement (mass/volume) - 05/04/16 13:18 Serum or plasma ethanol measurement (mass/volume) < mg/dL <10 Urine drug screening test - 05/04/16 13:24 Urine phencyclidine detection by screening method NEGATIVE NEGATIVE Urine benzodiazepines detection by screening method NEGATIVE NEGATIVE Urine cocaine detection NEGATIVE NEGATIVE Urine amphetamines detection by screening method NEGATIVE NEGATIVE Urine methamphetamine detection by screening method NEGATIVE NEGATIVE Urine cannabinoids detection by screening method POSITIVE NEGATIVE Urine opiates detection by screening method NEGATIVE NEGATIVE Urine barbiturates detection NEGATIVE NEGATIVE Screening urine tricyclic antidepressants detection NEGATIVE NEGATIVE Urine methadone detection by screening method NEGATIVE NEGATIVE Urine oxycodone detection NEGATIVE NEGATIVE Urine propoxyphene detection NEGATIVE NEGATIVE Complete urinalysis with reflex to culture - 05/04/16 13:24 Urine color determination YELLOW NRG Urine clarity determination SLIGHTLY CLOUDY NRG Urine pH measurement by test strip 8 5-9 Specific gravity of urine by test strip 1.015 1.016- 1.022 Urine protein assay by test strip, semi-quantitative NEGATIVE NEGATIVE Urine glucose detection by automated test strip NEGATIVE NEGATIVE Erythrocytes detection in urine sediment by light microscopy NEGATIVE NEGATIVE Urine ketones detection by automated test strip NEGATIVE NEGATIVE Urine nitrite detection by test strip NEGATIVE NEGATIVE Urine total bilirubin detection by test strip NEGATIVE NEGATIVE Urine urobilinogen measurement by automated test strip (mass/volume) NORMAL NORMAL Urine leukocyte esterase detection by dipstick NEGATIVE NEGATIVE Automated urine sediment erythrocyte count by microscopy (number/high power field) NONE NRG Automated urine sediment leukocyte count by microscopy (number/high power field ) NONE NRG Bacteria detection in urine sediment by light microscopy FEW NRG Squamous epithelial cells detection in urine sediment by light microscopy 2-5 NRG Crystals detection in urine sediment by light microscopy PRESENT NRG Casts detection in urine sediment by light microscopy NONE NRG Mucus detection in urine sediment by light microscopy NEGATIVE NRG Complete urinalysis with reflex to culture NO NRG Amorphous sediment detection in urine sediment by light microscopy LARGE DAR PHOSPHATE NRG Complete blood count (CBC) with automated white blood cell (WBC) differential - 05/16/16 15:46 Blood leukocytes automated count (number/volume) 10.8 10*3/uL 4.3-11.0 Blood erythrocytes automated count (number/volume) 5.12 10*6/uL 4.35-5.85 Venous blood hemoglobin measurement (mass/volume) 16.0 g/dL 13.3-17.7 Blood hematocrit (volume fraction) 46 % 40-54 Automated erythrocyte mean corpuscular volume 89 [foz_us] 80-99 Automated erythrocyte mean corpuscular hemoglobin (mass per erythrocyte) 31 pg 25-34 Automated erythrocyte mean corpuscular hemoglobin concentration measurement ( mass/volume) 35 g/dL 32-36 Automated erythrocyte distribution width ratio 12.6 % 10.0-14.5 Automated blood platelet count (count/volume) 216 10*3/uL 130-400 Automated blood platelet mean volume measurement 8.7 [foz_us] 7.4-10.4 Automated blood neutrophils/100 leukocytes 67 % 42-75 Automated blood lymphocytes/100 leukocytes 19 % 12-44 Blood monocytes/100 leukocytes 13 % 0-12 Automated blood eosinophils/100 leukocytes 1 % 0-10 Automated blood basophils/100 leukocytes 0 % 0-10 Blood neutrophils automated count (number/volume) 7.3 10*3 1.8-7.8 Blood lymphocytes automated count (number/volume) 2.0 10*3 1.0-4.0 Blood monocytes automated count (number/volume) 1.4 10*3 0.0-1.0 Automated eosinophil count 0.1 10*3/uL 0.0-0.3 Automated blood basophil count (count/volume) 0.0 10*3/uL 0.0-0.1 Lipase - 05/16/16 15:46 Lipase 8 U/L 8-78 Comprehensive metabolic panel - 05/16/16 15:46 Serum or plasma sodium measurement (moles/volume) 140 mmol/L 135-145 Serum or plasma potassium measurement (moles/volume) 4.4 mmol/L 3.6-5.0 Serum or plasma chloride measurement (moles/volume) 103 mmol/L 98-107 Carbon dioxide 26 mmol/L 21-32 Serum or plasma anion gap determination (moles/volume) 11 mmol/L 5-14 Serum or plasma urea nitrogen measurement (mass/volume) 13 mg/dL 7-18 Serum or plasma creatinine measurement (mass/volume) 0.86 mg/dL 0.60-1.30 Serum or plasma urea nitrogen/creatinine mass ratio 15 NRG Serum or plasma creatinine measurement with calculation of estimated glomerular filtration rate > NRG Serum or plasma glucose measurement (mass/volume) 97 mg/dL 70-105 Serum or plasma calcium measurement (mass/volume) 9.5 mg/dL 8.5-10.1 Serum or plasma total bilirubin measurement (mass/volume) 0.7 mg/dL 0.1-1.0 Serum or plasma alkaline phosphatase measurement (enzymatic activity/volume) 66 U/L 40-136 Serum or plasma aspartate aminotransferase measurement (enzymatic activity/ volume) 33 U/L 5-34 Serum or plasma alanine aminotransferase measurement (enzymatic activity/volume ) 70 U/L 0-55 Serum or plasma protein measurement (mass/volume) 7.7 g/dL 6.4-8.2 Serum or plasma albumin measurement (mass/volume) 4.6 g/dL 3.2-4.5 Complete urinalysis with reflex to culture - 05/16/16 16:15 Urine color determination YELLOW NRG Urine clarity determination CLEAR NRG Urine pH measurement by test strip 6 5-9 Specific gravity of urine by test strip 1.025 1.016- 1.022 Urine protein assay by test strip, semi-quantitative 1+ NEGATIVE Urine glucose detection by automated test strip NEGATIVE NEGATIVE Erythrocytes detection in urine sediment by light microscopy NEGATIVE NEGATIVE Urine ketones detection by automated test strip NEGATIVE NEGATIVE Urine nitrite detection by test strip NEGATIVE NEGATIVE Urine total bilirubin detection by test strip NEGATIVE NEGATIVE Urine urobilinogen measurement by automated test strip (mass/volume) NORMAL NORMAL Urine leukocyte esterase detection by dipstick NEGATIVE NEGATIVE Automated urine sediment erythrocyte count by microscopy (number/high power field) NONE NRG Automated urine sediment leukocyte count by microscopy (number/high power field ) NONE NRG Bacteria detection in urine sediment by light microscopy NONE NRG Crystals detection in urine sediment by light microscopy NONE NRG Casts detection in urine sediment by light microscopy NONE NRG Mucus detection in urine sediment by light microscopy MODERATE NRG Complete urinalysis with reflex to culture NO NRG Complete blood count (CBC) with automated white blood cell (WBC) differential - 10/19/16 14:36 Blood leukocytes automated count (number/volume) 5.1 10*3/uL 4.3-11.0 Blood erythrocytes automated count (number/volume) 5.07 10*6/uL 4.35-5.85 Venous blood hemoglobin measurement (mass/volume) 15.8 g/dL 13.3-17.7 Blood hematocrit (volume fraction) 45 % 40-54 Automated erythrocyte mean corpuscular volume 89 [foz_us] 80-99 Automated erythrocyte mean corpuscular hemoglobin (mass per erythrocyte) 31 pg 25-34 Automated erythrocyte mean corpuscular hemoglobin concentration measurement ( mass/volume) 35 g/dL 32-36 Automated erythrocyte distribution width ratio 12.5 % 10.0-14.5 Automated blood platelet count (count/volume) 212 10*3/uL 130-400 Automated blood platelet mean volume measurement 9.3 [foz_us] 7.4-10.4 Automated blood neutrophils/100 leukocytes 44 % 42-75 Automated blood lymphocytes/100 leukocytes 38 % 12-44 Blood monocytes/100 leukocytes 16 % 0-12 Automated blood eosinophils/100 leukocytes 2 % 0-10 Automated blood basophils/100 leukocytes 0 % 0-10 Blood neutrophils automated count (number/volume) 2.3 10*3 1.8-7.8 Blood lymphocytes automated count (number/volume) 1.9 10*3 1.0-4.0 Blood monocytes automated count (number/volume) 0.8 10*3 0.0-1.0 Automated eosinophil count 0.1 10*3/uL 0.0-0.3 Automated blood basophil count (count/volume) 0.0 10*3/uL 0.0-0.1 Comprehensive metabolic panel - 10/19/16 14:36 Serum or plasma sodium measurement (moles/volume) 139 mmol/L 135-145 Serum or plasma potassium measurement (moles/volume) 4.0 mmol/L 3.6-5.0 Serum or plasma chloride measurement (moles/volume) 104 mmol/L 98-107 Carbon dioxide 27 mmol/L 21-32 Serum or plasma anion gap determination (moles/volume) 8 mmol/L 5-14 Serum or plasma urea nitrogen measurement (mass/volume) 16 mg/dL 7-18 Serum or plasma creatinine measurement (mass/volume) 0.95 mg/dL 0.60-1.30 Serum or plasma urea nitrogen/creatinine mass ratio 17 NRG Serum or plasma creatinine measurement with calculation of estimated glomerular filtration rate > NRG Serum or plasma glucose measurement (mass/volume) 100 mg/dL 70-105 Serum or plasma calcium measurement (mass/volume) 9.5 mg/dL 8.5-10.1 Serum or plasma total bilirubin measurement (mass/volume) 0.8 mg/dL 0.1-1.0 Serum or plasma alkaline phosphatase measurement (enzymatic activity/volume) 60 U/L 40-136 Serum or plasma aspartate aminotransferase measurement (enzymatic activity/ volume) 17 U/L 5-34 Serum or plasma alanine aminotransferase measurement (enzymatic activity/volume ) 16 U/L 0-55 Serum or plasma protein measurement (mass/volume) 7.8 g/dL 6.4-8.2 Serum or plasma albumin measurement (mass/volume) 4.6 g/dL 3.2-4.5 Lipase - 10/19/16 14:36 Lipase 9 U/L 8-78 Blood lactic acid measurement (moles/volume) - 10/19/16 14:51 Blood lactic acid measurement (moles/volume) 1.80 mmol/L 0.50-2.00 Complete urinalysis with reflex to culture - 10/19/16 14:51 Urine color determination YELLOW NRG Urine clarity determination CLEAR NRG Urine pH measurement by test strip 6 5-9 Specific gravity of urine by test strip 1.025 1.016- 1.022 Urine protein assay by test strip, semi-quantitative 2+ NEGATIVE Urine glucose detection by automated test strip NEGATIVE NEGATIVE Erythrocytes detection in urine sediment by light microscopy 1+ NEGATIVE Urine ketones detection by automated test strip NEGATIVE NEGATIVE Urine nitrite detection by test strip NEGATIVE NEGATIVE Urine total bilirubin detection by test strip NEGATIVE NEGATIVE Urine urobilinogen measurement by automated test strip (mass/volume) 1 mg/dL NORMAL Urine leukocyte esterase detection by dipstick 1+ NEGATIVE Automated urine sediment erythrocyte count by microscopy (number/high power field) NONE NRG Automated urine sediment leukocyte count by microscopy (number/high power field ) RARE NRG Bacteria detection in urine sediment by light microscopy NEGATIVE NRG Squamous epithelial cells detection in urine sediment by light microscopy NONE NRG Crystals detection in urine sediment by light microscopy PRESENT NRG Casts detection in urine sediment by light microscopy NONE NRG Mucus detection in urine sediment by light microscopy LARGE NRG Complete urinalysis with reflex to culture NO NRG Calcium oxalate crystals detection in urine sediment by light microscopy LARGE NRG Encounters ACCT No. Visit Date/Time Discharge Status Pt. Type Provider Facility Loc./Unit Complaint [id number] 01/21/2017 13:02:00 01/21/2017 13:52:00 DIS Emergency ANGELIA RODRIGUEZ [facility] ER R HAND LACERATION [id number] 10/19/2016 13:54:00 10/19/2016 16:06:00 DIS Emergency ANA AVERY MD [facility] ER STOMACH ACHE,VOMITING [id number] 05/16/2016 13:27:00 05/16/2016 16:40:00 DIS Emergency MELANY ZAYAS APRN [facility] ER ABD PAIN/MED REFILL [id number] 05/04/2016 11:51:00 05/04/2016 14:24:00 DIS Emergency ANGELIA RODRIGUEZ [facility] ER ANXIETY [id number] 02/06/2016 10:44:00 02/06/2016 11:46:00 DIS Emergency MELANY ZAYAS APRN [facility] ER L LEG INJ [id number] 09/30/2015 07:43:00 09/30/2015 09:44:00 DIS Emergency ALFREDO HUNT DO [facility] ER VOMITING/NAUSEA [id number] 07/09/2015 13:51:00 07/09/2015 15:36:00 DIS Emergency MELANY ZAYAS PAINT TECHNICIAN [facility] ER ANXIETY ATTACK [id number] 04/06/2014 17:16:00 04/06/2014 21:32:00 DIS Emergency BENNIE WEBSTER, ANA [place] [facility] ER BACK PAIN,VOMITING BLOOD [id number] 01/05/2014 10:19:00 01/05/2014 12:28:00 DIS Emergency MELANY ZAYAS PAINT TECHNICIAN [facility] ER ABD PAIN [id number] 10/06/2013 10:41:00 10/06/2013 12:18:00 DIS Emergency MELANY ZAYAS PAINT TECHNICIAN [facility] ER VOMITING [id number] 09/07/2013 11:21:00 09/07/2013 12:36:00 DIS Emergency MELANY ZAYAS PAINT TECHNICIAN [facility] ER ANXIETY,VOMITING [id number] 03/31/2013 10:14:00 03/31/2013 12:32:00 DIS Emergency
[2017-03-30] MEDS ORDERED: ANTACID SUSP 30 ML UDC (MYLANTA) PO ONE (16:15)
[2017-03-30] MEDS ORDERED: ONDANSETRON 4 MG/2 ML (SDV) Z0FRAN IVP ONE (16:15)
[2017-03-30] MEDS ORDERED: LIDOCAINE 2% VISCOUS 15 ML UDC PO ONE (16:15)
--- NOTE | 2017-03-30 16:17 | ED Abdominal Pain ---
General Stated Complaint: ABD PAIN,VOMITING Source of Information: Patient Exam Limitations: No Limitations History of Present Illness Date Seen by Provider: Mar 30, 2017 Time Seen By Provider: 16:14 Initial Comments To ER with nausea and vomiting for 8-10 hours after finding out he is going to be a father. He believes is secondary to stress. No diarrhea, does have epigastric pain. Has been here multiple tiems for this. Still has not established with a PCP. denies any marijuana use x3 days, no etoh use for several weeks. Timing/Duration: 4-6 Hours Severity/Quality: Moderate Location: Epigastric Radiation: No Radiation Activities at Onset: None Allergies and Home Medications Allergies Coded Allergies: No Known Drug Allergies (Unverified , 01/14/11) Home Medications No Active Prescriptions or Reported Meds Review of Systems Constitutional: see HPI EENTM: No Symptoms Reported Respiratory: No Symptoms Reported Cardiovascular: No Symptoms Reported Gastrointestinal: See HPI, Abdominal Pain, Nausea, Vomiting Genitourinary: No Symptoms Reported Musculoskeletal: no symptoms reported Skin: no symptoms reported Psychiatric/Neurological: No Symptoms Reported Endocrine: No Symptoms Reported Past Wgbbxsb-Wlyccd-Igaqzr Hx Patient Social History Drug of Choice: marijuana Type Used: Cigarettes 2nd Hand Smoke Exposure: No Recent Foreign Travel: No Contact w/Someone Who Travel: No Recent Hopitalizations: No Immunizations Up To Date Tetanus Booster (TDap): Less than 5yrs Date of Influenza Vaccine: Jan 13, 2014 Seasonal Allergies Seasonal Allergies: No Surgeries History of Surgeries: Yes (tubes in ears) Surgeries: Ear Surgery Respiratory History of Respiratory Disorde: Yes Respiratory Disorders: Asthma Cardiovascular History of Cardiac Disorders: No Neurological History of Neurological Disord: No Reproductive System Hx Reproductive Disorders: No Genitourinary History of Genitourinary Disor: No Gastrointestinal History of Gastrointestinal Di: Yes Gastrointestinal Disorders: Gastroesophageal Reflux Musculoskeletal History of Musculoskeletal Dis: No Endocrine History of Endocrine Disorders: No HEENT History of HEENT Disorders: No Cancer History of Cancer: No Psychosocial History of Psychiatric Problem: Yes Behavioral Health Disorders: Anxiety, Depression Integumentary History of Skin or Integumenta: No Blood Transfusions History of Blood Disorders: No Family Medical History Significant Family History: No Pertinent Family Hx Physical Exam Vital Signs VS - Last 72 Hours, by Label 03/30/17 16:15 Temp 97.5 Pulse 70 Resp 16 B/P (MAP) 132/90 (104) Pulse Ox 98 O2 Delivery Room Air Capillary Refill : General Appearance: WD/WN, no apparent distress HEENT: PERRL/EOMI, normal ENT inspection Neck: non-tender, full range of motion Respiratory: normal breath sounds, no respiratory distress, no accessory muscle use Gastrointestinal: normal bowel sounds, non tender, soft Extremities: normal range of motion, non-tender Neurologic/Psychiatric: alert, normal mood/affect, oriented x 3 Skin: normal color, warm/dry Laceration Repair : Suture Size: 4-0 Progress/Results/Core Measures Results/Orders Lab Results Laboratory Tests Test 03/30/17 16:12 Range/Units White Blood Count 6.8 4.3-11.0 10^3/uL Red Blood Count 5.10 4.35-5.85 10^6/uL Hemoglobin 16.3 13.3-17.7 G/DL Hematocrit 45 40-54 % Mean Corpuscular Volume 89 80-99 FL Mean Corpuscular Hemoglobin 32 25-34 PG Mean Corpuscular Hemoglobin Concent 36 32-36 G/DL Red Cell Distribution Width 11.8 10.0-14.5 % Platelet Count 218 130-400 10^3/uL Mean Platelet Volume 9.0 7.4-10.4 FL Neutrophils (%) (Auto) 62 42-75 % Lymphocytes (%) (Auto) 25 12-44 % Monocytes (%) (Auto) 12 0-12 % Eosinophils (%) (Auto) 1 0-10 % Basophils (%) (Auto) 0 0-10 % Neutrophils # (Auto) 4.2 1.8-7.8 X 10^3 Lymphocytes # (Auto) 1.7 1.0-4.0 X 10^3 Monocytes # (Auto) 0.8 0.0-1.0 X 10^3 Eosinophils # (Auto) 0.0 0.0-0.3 10^3/uL Basophils # (Auto) 0.0 0.0-0.1 10^3/uL Sodium Level 140 135-145 MMOL/L Potassium Level 4.8 3.6-5.0 MMOL/L Chloride Level 105 98-107 MMOL/L Carbon Dioxide Level 24 21-32 MMOL/L Anion Gap 11 5-14 MMOL/L Blood Urea Nitrogen 14 7-18 MG/DL Creatinine 1.03 0.60-1.30 MG/DL Estimat Glomerular Filtration Rate > 60 BUN/Creatinine Ratio 14 Glucose Level 100 70-105 MG/DL Calcium Level 9.8 8.5-10.1 MG/DL Total Bilirubin 2.0 H 0.1-1.0 MG/DL Aspartate Amino Transf (AST/SGOT) 19 5-34 U/L Alanine Aminotransferase (ALT/SGPT) 21 0-55 U/L Alkaline Phosphatase 62 40-136 U/L Total Protein 8.2 6.4-8.2 GM/DL Albumin 4.7 H 3.2-4.5 GM/DL Lipase 6 L 8-78 U/L My Orders Orders - MELANY ZAYAS APRN Cbc With Automated Diff (03/30/17 16:11) Saline Lock/Iv-Start (03/30/17 16:11) Comprehensive Metabolic Panel (03/30/17 16:11) Lipase (03/30/17 16:11) Ondansetron Injection (Zofran Injectio (03/30/17 16:15) Antacid Suspension (Mylanta Suspension (03/30/17 16:15) Lidocaine 2% Viscous 15 Ml (Xylocaine Vi (03/30/17 16:15) Medications Given in ED Current Medications Medications Dose Ordered Sig/Mario Route Start Time Stop Time Status Last Admin Dose Admin Al Hydrox/Mg Hydrox/Simethicone 30 ml ONCE ONCE PO 03/30/17 16:15 03/30/17 16:16 DC 03/30/17 16:30 30 ML Lidocaine HCl 15 ml ONCE ONCE PO 03/30/17 16:15 03/30/17 16:16 DC 03/30/17 16:30 15 ML Ondansetron HCl 8 mg ONCE ONCE IVP 03/30/17 16:15 03/30/17 16:16 DC 03/30/17 16:30 8 MG Vital Signs/I&O Vital Sign - Last 12Hours 03/30/17 16:15 Temp 97.5 Pulse 70 Resp 16 B/P (MAP) 132/90 (104) Pulse Ox 98 O2 Delivery Room Air Departure Communication (Admissions) Progress Notes [id number]- patient is feeling much better at this time. I will give him a prescription for Vistaril which has historically worked well for him. Impression Impression: Primary Impression: Anxiety Additional Impression: Nausea and vomiting Disposition: 01 HOME, SELF-CARE Condition: Stable Departure-Patient Inst. Decision time for Depature: 16:16 Referrals: NO,LOCAL PHYSICIAN (PCP/Family) Primary Care Physician Patient Instructions: NO INSTRUCTIONS GIVEN Add. Discharge Instructions: 1. Continue to avoid alcohol, good job on this 2. Work on reducing your exposure to marijuana as this can in some people cause recurrent bouts of abdominal pain nausea and vomiting 3. Medication as directed Scripts Hydroxyzine Pamoate (Vistaril) 25 Mg Capsule 25 MG PO Q6H Y for ANXIETY, #30 CAP Prov: MELANY ZAYAS APRN 03/30/17 Work/School Note: [employer] MELANY ZAYAS APRN Mar 30, 2017 16:17
[2017-03-30 16:28] LABS: BASOPHILS % (AUTO) 0 % (0-10); EOSINOPHILS % (AUTO) 1 % (0-10); HEMATOCRIT 45 % (40-54); HEMOGLOBIN 16.3 G/DL (13.3-17.7); LYMPHOCYTES # (AUTO) 1.7 X 10^3 (1.0-4.0); LYMPHOCYTES % (AUTO) 25 % (12-44); MEAN CORPUSCULAR HEMOGLOBIN 32 PG (25-34); MEAN CORPUSCULAR HGB CONC 36 G/DL (32-36); MEAN CORPUSCULAR VOLUME 89 FL (80-99); MONOCYTES # (AUTO) 0.8 X 10^3 (0.0-1.0); MONOCYTES % (AUTO) 12 % (0-12); NEUTROPHILS # (AUTO) 4.2 X 10^3 (1.8-7.8); NEUTROPHILS % (AUTO) 62 % (42-75); PLATELET COUNT 218 10^3/uL (130-400); RED CELL DISTRIBUTION WIDTH 11.8 % (10.0-14.5); WHITE BLOOD COUNT 6.8 10^3/uL (4.3-11.0)
[2017-03-30 16:43] LABS: ALANINE AMINOTRANSFERASE 21 U/L (0-55); ALBUMIN 4.7 GM/DL (3.2-4.5); ALKALINE PHOSPHATASE 62 U/L (40-136); BUN/CREATININE RATIO 14; CALCIUM 9.8 MG/DL (8.5-10.1); CARBON DIOXIDE 24 MMOL/L (21-32); CHLORIDE 105 MMOL/L (98-107); CREATININE SERUM 1.03 MG/DL (0.60-1.30); GFR ESTIMATED > 60; GLUCOSE 100 MG/DL (70-105); LIPASE 6 U/L (8-78); POTASSIUM 4.8 MMOL/L (3.6-5.0); SODIUM 140 MMOL/L (135-145); TOTAL PROTEIN 8.2 GM/DL (6.4-8.2)
[2017-03-30] MEDS ORDERED: HYDR25CA PO (16:48)
[2017-03-30 17:00] VITALS: BP 126/88
== END 2017-03-30 17:00 | disposition home or self-care (01) ==
LOC: EDUNIT# 15:13 → ER 15:14
DX: F41.9 Anxiety disorder, unspecified (principal); R11.2 Nausea with vomiting, unspecified; F32.9 Major depressive disorder, single episode, unspecified; K21.9 Gastro-esophageal reflux disease without esophagitis; J45.909 Unspecified asthma, uncomplicated; F12.90 Cannabis use, unspecified, uncomplicated
CPT/HCPCS: 36415; 80053; 83690; 85025; 96374

== ENCOUNTER 2017-07-07 05:49 | Emergency (ER) | payer BC ==
[~2017-07-07] VITALS: Ht 170.2 cm; Wt 81.6 kg
--- OUTSIDE RECORDS SUMMARY | 2017-07-07 05:55 | XMS REPORT | Continuity of Care Document ---
Author Author [facility] Organization [facility] Address Unknown Phone Unavailable Allergies Active Description Code Type Severity Reaction Onset Reported/Identified Relationship to Patient Clinical Status Yes No Known Drug Allergies [id number] Drug Allergy Unknown N/A 01/14/2011 Medications There is no data. Problems Date Dx Coded Attending Type Code Diagnosis Diagnosed By 09/07/2013 MELANY ZAYAS APRN Ot 300.00 ANXIETY STATE NOS 09/07/2013 MELANY ZAYAS PLEAT PATTERNMAKER Ot 787.03 VOMITING ALONE 10/06/2013 MELANY ZAYAS APRN Ot 787.01 NAUSEA WITH VOMITING 01/05/2014 MELANY ZAYAS PLEAT PATTERNMAKER Ot 535.50 UNSP GASTRITIS GASTRODUODENITIS W/O ME 01/05/2014 MELANY ZAYAS APRN Ot 564.1 IRRITABLE BOWEL SYNDROME 01/05/2014 MELANY ZAYAS PLEAT PATTERNMAKER Ot 789.06 ABDOMINAL PAIN, EPIGASTRIC 04/06/2014 BENNIE WEBSTER, ANA Lewis Ot 276.51 DEHYDRATION 04/06/2014 BENNIE WEBSTER, ANA Lewis Ot 787.01 NAUSEA WITH VOMITING 07/09/2015 MELANY ZAYAS PLEAT PATTERNMAKER Ot F17.210 NICOTINE DEPENDENCE, CIGARETTES, UNCOMPL 07/09/2015 MELANY ZAYAS APRN Ot F41.9 ANXIETY DISORDER, UNSPECIFIED 07/10/2015 MELANY ZAYAS PLEAT PATTERNMAKER Ot F17.210 NICOTINE DEPENDENCE, CIGARETTES, UNCOMPL 07/10/2015 MELANY ZAYAS PLEAT PATTERNMAKER Ot F41.9 ANXIETY DISORDER, UNSPECIFIED 09/30/2015 MARILEE [...] K29.70 GASTRITIS, UNSPECIFIED, WITHOUT BLEEDING 10/01/2015 MARILEE CHATTERJEEALFREDO Ot R10.13 EPIGASTRIC PAIN 02/06/2016 MELANY ZAYAS APRN Ot S83.92XA SPRAIN OF UNSPECIFIED SITE OF LEFT KNEE, 02/06/2016 MELANY ZAYAS APRN Ot S89.92XA UNSPECIFIED INJURY OF LEFT LOWER LEG, IN 02/06/2016 MELANY ZAYAS APRN Ot X50.9XXA OTHER AND UNSPECIFIED OVREXRTN OR STRNOU 02/06/2016 MELANY ZAYAS APRN Ot Y92.[address] 02/06/2016 MELANY ZAYAS APRN Ot Y93.61 ACTIVITY, JAPANESE TACKLE FOOTBALL 02/06/2016 MELANY ZAYAS APRN Ot [...] GASTRITIS, UNSPECIFIED, WITHOUT BLEEDING 05/16/2016 MELANY ZAYAS APRN Ot R10.13 EPIGASTRIC PAIN 05/17/2016 MELANY ZAYAS APRN Ot F12.21 CANNABIS DEPENDENCE, IN REMISSION 05/17/2016 MELANY ZAYAS APRN Ot F17.210 NICOTINE DEPENDENCE, CIGARETTES, UNCOMPL 05/17/2016 MELANY ZAYAS APRN Ot F41.9 ANXIETY DISORDER, UNSPECIFIED 05/17/2016 MELANY ZAYAS APRN Ot K29.70 GASTRITIS, UNSPECIFIED, WITHOUT BLEEDING 05/17/2016 MELANY ZAYAS APRN Ot R10.13 EPIGASTRIC PAIN 10/19/2016 ANA AVERY [...] W26.8XXA CONTACT WITH OTHER SHARP OBJECT(S), NEC, 03/30/2017 MELANY ZAYAS APRN Ot F12.90 CANNABIS USE, UNSPECIFIED, UNCOMPLICATED 03/30/2017 MELANY ZAYAS APRN Ot F32.9 MAJOR DEPRESSIVE DISORDER, SINGLE EPISOD 03/30/2017 MARQUEZ MELANY Pederson APRN Ot F41.9 ANXIETY DISORDER, UNSPECIFIED 03/30/2017 MELANY ZAYAS APRN Ot J45.909 UNSPECIFIED ASTHMA, UNCOMPLICATED 03/30/2017 MARQUEZ MELANY Pederson APRN Ot K21.9 GASTRO-ESOPHAGEAL REFLUX DISEASE WITHOUT 03/30/2017 MELANY ZAYAS APRN Ot R11.2 NAUSEA WITH VOMITING, UNSPECIFIED 04/03/2017 MELANY ZAYAS APRN Ot F12.90 CANNABIS USE, UNSPECIFIED, UNCOMPLICATED 04/03/2017 MELANY ZAYAS APRN Ot F32.9 MAJOR DEPRESSIVE DISORDER, SINGLE EPISOD 04/03/2017 MELANY ZAYAS APRN Ot F41.9 ANXIETY DISORDER, UNSPECIFIED 04/03/2017 MELANY ZAYAS APRN Ot J45.909 UNSPECIFIED ASTHMA, UNCOMPLICATED 04/03/2017 MELANY ZAYAS APRN Ot K21.9 GASTRO-ESOPHAGEAL REFLUX DISEASE WITHOUT 04/03/2017 MELANY ZAYAS APRN Ot R11.2 NAUSEA WITH VOMITING, UNSPECIFIED Procedures There is no data. Results Test [...] sediment by light microscopy LARGE NRG Complete blood count (CBC) with automated white blood cell (WBC) differential - 03/30/17 16:12 Blood leukocytes automated count (number/volume) 6.8 10*3/uL 4.3-11.0 Blood erythrocytes automated count (number/volume) 5.10 10*6/uL 4.35-5.85 Venous blood hemoglobin measurement (mass/volume) 16.3 g/dL 13.3-17.7 Blood hematocrit (volume fraction) 45 % 40-54 Automated erythrocyte mean corpuscular volume 89 [foz_us] 80-99 Automated erythrocyte mean corpuscular hemoglobin (mass per erythrocyte) 32 pg 25-34 Automated erythrocyte mean corpuscular hemoglobin concentration measurement ( mass/volume) 36 g/dL 32-36 Automated erythrocyte distribution width ratio 11.8 % 10.0-14.5 Automated blood platelet count (count/volume) 218 10*3/uL 130-400 Automated blood platelet mean volume measurement 9.0 [foz_us] 7.4-10.4 Automated blood neutrophils/100 leukocytes 62 % 42-75 Automated blood lymphocytes/100 leukocytes 25 % 12-44 Blood monocytes/100 leukocytes 12 % 0-12 Automated blood eosinophils/100 leukocytes 1 % 0-10 Automated blood basophils/100 leukocytes 0 % 0-10 Blood neutrophils automated count (number/volume) 4.2 10*3 1.8-7.8 Blood lymphocytes automated count (number/volume) 1.7 10*3 1.0-4.0 Blood monocytes automated count (number/volume) 0.8 10*3 0.0-1.0 Automated eosinophil count 0.0 10*3/uL 0.0-0.3 Automated blood basophil count (count/volume) 0.0 10*3/uL 0.0-0.1 Comprehensive metabolic panel - 03/30/17 16:12 Serum or plasma sodium measurement (moles/volume) 140 mmol/L 135-145 Serum or plasma potassium measurement (moles/volume) 4.8 mmol/L 3.6-5.0 Serum or plasma chloride measurement (moles/volume) 105 mmol/L 98-107 Carbon dioxide 24 mmol/L 21-32 Serum or plasma anion gap determination (moles/volume) 11 mmol/L 5-14 Serum or plasma urea nitrogen measurement (mass/volume) 14 mg/dL 7-18 Serum or plasma creatinine measurement (mass/volume) 1.03 mg/dL 0.60-1.30 Serum or plasma urea nitrogen/creatinine mass ratio 14 NRG Serum or plasma creatinine measurement with calculation of estimated glomerular filtration rate > NRG Serum or plasma glucose measurement (mass/volume) 100 mg/dL 70-105 Serum or plasma calcium measurement (mass/volume) 9.8 mg/dL 8.5-10.1 Serum or plasma total bilirubin measurement (mass/volume) 2.0 mg/dL 0.1-1.0 Serum or plasma alkaline phosphatase measurement (enzymatic activity/volume) 62 U/L 40-136 Serum or plasma aspartate aminotransferase measurement (enzymatic activity/ volume) 19 U/L 5-34 Serum or plasma alanine aminotransferase measurement (enzymatic activity/volume ) 21 U/L 0-55 Serum or plasma protein measurement (mass/volume) 8.2 g/dL 6.4-8.2 Serum or plasma albumin measurement (mass/volume) 4.7 g/dL 3.2-4.5 Lipase - 03/30/17 16:12 Lipase 6 U/L 8-78 Encounters ACCT No. Visit Date/Time Discharge Status Pt. Type Provider Facility Loc./Unit Complaint [id number] 03/30/2017 15:14:00 03/30/2017 17:00:00 DIS Emergency MELANY ZAYAS APRN [facility] ER ABD PAIN,VOMITING [id number] 01/21/2017 13:02:00 01/21/2017 13:52:00 DIS Emergency ANGELIA RODRIGUEZ [facility] ER R HAND LACERATION [id number] 10/19/2016 13:54:00 10/19/2016 16:06:00 DIS Emergency ANA AVERY MD [facility] ER STOMACH ACHE,VOMITING [id number] 05/16/2016 13:27:00 05/16/2016 16:40:00 DIS Emergency MELANY ZAYAS APRN [facility] ER ABD PAIN/MED REFILL [id number] 05/04/2016 11:51:00 05/04/2016 14:24:00 DIS Emergency ANGELIA RODRIGUEZ [facility] ER ANXIETY [id number] 02/06/2016 10:44:00 02/06/2016 11:46:00 DIS Emergency MELANY ZAYAS APRN [facility] ER L LEG INJ [id number] 09/30/2015 07:43:00 09/30/2015 09:44:00 DIS Emergency ALFREDO HUNT DO K [facility] ER VOMITING/NAUSEA [id number] 07/09/2015 13:51:00 07/09/2015 15:36:00 DIS Emergency MELANY ZAYAS APRN [facility] ER ANXIETY ATTACK [id number] 04/06/2014 17:16:00 04/06/2014 21:32:00 DIS Emergency ANA AVERY MD [facility] ER BACK PAIN,VOMITING BLOOD [id number] 01/05/2014 10:19:00 01/05/2014 12:28:00 DIS Emergency MELANY ZAYAS APRN [facility] ER ABD PAIN [id number] 10/06/2013 10:41:00 10/06/2013 12:18:00 DIS Emergency MELANY ZAYAS APRN [facility] ER VOMITING [id number] 09/07/2013 11:21:00 09/07/2013 12:36:00 DIS Emergency MELANY ZAYAS APRN [facility] ER ANXIETY,VOMITING [id number] 03/31/2013 10:14:00 03/31/2013 12:32:00 DIS Emergency [email or web address] 04/18/2014 15:42:10 ACT Document Registration
[2017-07-07] MEDS ORDERED: LACTATED RINGERS 1,000 ML IV ONE (06:16)
[2017-07-07] MEDS ORDERED: ONDANSETRON 4 MG/2 ML (SDV) Z0FRAN IVP ONE (06:30)
[2017-07-07 06:35] LABS: BASOPHILS % (AUTO) 0 % (0-10); EOSINOPHILS % (AUTO) 0 % (0-10); HEMATOCRIT 46 % (40-54); HEMOGLOBIN 16.4 G/DL (13.3-17.7); LYMPHOCYTES # (AUTO) 0.5 X 10^3 (1.0-4.0); LYMPHOCYTES % (AUTO) 5 % (12-44); MEAN CORPUSCULAR HEMOGLOBIN 31 PG (25-34); MEAN CORPUSCULAR HGB CONC 35 G/DL (32-36); MEAN CORPUSCULAR VOLUME 88 FL (80-99); MEAN PLATELET VOLUME 9.1 FL (7.4-10.4); MONOCYTES # (AUTO) 0.8 X 10^3 (0.0-1.0); MONOCYTES % (AUTO) 8 % (0-12); NEUTROPHILS % (AUTO) 87 % (42-75); PLATELET COUNT 209 10^3/uL (130-400); RED CELL DISTRIBUTION WIDTH 11.8 % (10.0-14.5); WHITE BLOOD COUNT 10.3 10^3/uL (4.3-11.0)
--- NOTE | 2017-07-07 06:35 | ED Abdominal Pain ---
General Chief Complaint: Abdominal/GI Problems Stated Complaint: N,V,D Nursing Triage Note: PT TO ED 5 W/ C/O N/V/D ONSET 0300 THIS AM. PT'S S.O. REPORTS PT WOKE HER W/ SYMPTOMS. STATES HAS BEEN AROUND SEVERAL PEOPLE W/ SIMILAR SYMPTOMS Sepsis Screen: No Definite Risk Source of Information: Patient Exam Limitations: No Limitations History of Present Illness Date Seen by Provider: Jul 07, 2017 Time Seen by Provider: 06:05 Initial Comments This 22-year-old young man presents to the emergency room with onset of nausea, vomiting, and diarrhea around 21:00 yesterday. He woke his girlfriend 03:00 this morning requesting help. He is still dry heaving upon arrival to the ER. He complains of epigastric pain associated with the vomiting. He is afebrile. Allergies and Home Medications Allergies Coded Allergies: No Known Drug Allergies (Unverified , 01/14/11) Home Medications Hydroxyzine Pamoate 25 Mg Capsule, 25 MG PO Q6H PRN for ANXIETY Prescribed by: MELANY ZAYAS on 03/30/17 1648 Ondansetron 4 Mg Tab.rapdis, 4 MG SL Q4H PRN for NAUSEA/VOMITING-1ST LINE Prescribed by: JOURDAN ESQUIVEL on 07/07/17 0702 Patient Home Medication List Home Medication List Reviewed: Yes Review of Systems Constitutional: no symptoms reported EENTM: No Symptoms Reported Respiratory: No Symptoms Reported Cardiovascular: No Symptoms Reported Gastrointestinal: See HPI Genitourinary: No Symptoms Reported Musculoskeletal: no symptoms reported Skin: no symptoms reported Psychiatric/Neurological: No Symptoms Reported Endocrine: No Symptoms Reported Hematologic/Lymphatic: No Symptoms Reported Past Dlsqhkg-Hleevn-Yfwpxa Hx Patient Social History Alcohol Use: Denies Use Recreational Drug Use: Yes (LAST USED X1 WK AGO) Drug of Choice: marijuana Smoking Status: Current Everyday Smoker Type Used: Cigarettes 2nd Hand Smoke Exposure: No Recent Foreign Travel: No Contact w/Someone Who Travel: No Recent Infectious Disease Expo: No Recent Hopitalizations: No Physical Abuse: No Sexual Abuse: No Mistreated: No Fear: No Immunizations Up To Date Tetanus Booster (TDap): Less than 5yrs Date of Influenza Vaccine: Jan 13, 2014 Seasonal Allergies Seasonal Allergies: No Past Medical History Surgeries: Yes (tubes in ears) Ear Surgery Respiratory: Yes Asthma Cardiac: No Neurological: No Reproductive Disorders: No Genitourinary: No Gastrointestinal: Yes Gastroesophageal Reflux Musculoskeletal: No Endocrine: No HEENT: No Cancer: No Psychosocial: Yes Anxiety, Depression Nursing Suicide Risk Score: 0 Integumentary: No Blood Disorders: No Family Medical History No Pertinent Family Hx Physical Exam Vital Signs Vital Signs - First Documented 07/07/17 05:58 Temp 95.8 Pulse 94 Resp 18 B/P (MAP) 131/94 (106) Pulse Ox 98 O2 Delivery Room Air Capillary Refill : Less Than 3 Seconds General Appearance: WD/WN, mild distress HEENT: PERRL/EOMI, normal ENT inspection, pharynx normal Neck: normal inspection Respiratory: lungs clear, normal breath sounds, no respiratory distress, no accessory muscle use Cardiovascular: regular rate, rhythm, no edema, no murmur Gastrointestinal: normal bowel sounds, soft, tenderness (epigastrium) Extremities: normal inspection, no pedal edema Neurologic/Psychiatric: associate pathologist II-XII nml as tested, no motor/sensory deficits, alert, normal mood/affect, oriented x 3 Skin: normal color, warm/dry Procedures/Interventions Suture Size: 4-0 Progress/Results/Core Measures Lab Results Laboratory Tests Test 07/07/17 06:26 Range/Units White Blood Count 10.3 4.3-11.0 10^3/uL Red Blood Count 5.30 4.35-5.85 10^6/uL Hemoglobin 16.4 13.3-17.7 G/DL Hematocrit 46 40-54 % Mean Corpuscular Volume 88 80-99 FL Mean Corpuscular Hemoglobin 31 25-34 PG Mean Corpuscular Hemoglobin Concent 35 32-36 G/DL Red Cell Distribution Width 11.8 10.0-14.5 % Platelet Count 209 130-400 10^3/uL Mean Platelet Volume 9.1 7.4-10.4 FL Neutrophils (%) (Auto) 87 H 42-75 % Lymphocytes (%) (Auto) 5 L 12-44 % Monocytes (%) (Auto) 8 0-12 % Eosinophils (%) (Auto) 0 0-10 % Basophils (%) (Auto) 0 0-10 % Neutrophils # (Auto) 9.0 H 1.8-7.8 X 10^3 Lymphocytes # (Auto) 0.5 L 1.0-4.0 X 10^3 Monocytes # (Auto) 0.8 0.0-1.0 X 10^3 Eosinophils # (Auto) 0.0 0.0-0.3 10^3/uL Basophils # (Auto) 0.0 0.0-0.1 10^3/uL Neutrophils % (Manual) 83 % Lymphocytes % (Manual) 4 % Monocytes % (Manual) 7 % Eosinophils % (Manual) 0 % Basophils % (Manual) 0 % Band Neutrophils 1 % Reactive Lymphocytes 5 % Blood Morphology Comment NORMAL Sodium Level 140 135-145 MMOL/L Potassium Level 4.1 3.6-5.0 MMOL/L Chloride Level 104 98-107 MMOL/L Carbon Dioxide Level 23 21-32 MMOL/L Anion Gap 13 5-14 MMOL/L Blood Urea Nitrogen 22 H 7-18 MG/DL Creatinine 1.01 0.60-1.30 MG/DL Estimat Glomerular Filtration Rate > 60 BUN/Creatinine Ratio 22 Glucose Level 126 H 70-105 MG/DL Calcium Level 9.6 8.5-10.1 MG/DL Magnesium Level 2.1 1.8-2.4 MG/DL Total Bilirubin 1.6 H 0.1-1.0 MG/DL Aspartate Amino Transf (AST/SGOT) 17 5-34 U/L Alanine Aminotransferase (ALT/SGPT) 21 0-55 U/L Alkaline Phosphatase 65 40-136 U/L Total Protein 8.1 6.4-8.2 GM/DL Albumin 4.8 H 3.2-4.5 GM/DL Lipase 40 8-78 U/L My Orders Orders - JOURDAN FISHMAN MD Cbc With Automated Diff (07/07/17 06:16) Comprehensive Metabolic Panel (07/07/17 06:16) Lipase (07/07/17 06:16) Magnesium (07/07/17 06:16) Saline Lock/Iv-Start (07/07/17 06:16) Lactated Ringers (Lr 1000 Ml Iv Solution (07/07/17 06:16) Ondansetron Injection (Zofran Injectio (07/07/17 06:30) Ranitidine Injection (Zantac Injection) (07/07/17 09:00) Manual Differential (07/07/17 06:26) Ns Iv 1000 Ml (Sodium Chloride 0.9%) (07/07/17 06:57) Medications Given in ED Vital Signs/I&O 07/07/17 07/07/17 05:58 07:39 Temp 95.8 99.0 Pulse 94 97 Resp 18 18 B/P (MAP) 131/94 (106) 135/85 Pulse Ox 98 98 O2 Delivery Room Air Blood Pressure Mean: 106 Progress Note : Time: 07:00 Progress Note Patient received 1 L of LR, ranitidine, Zofran. Symptoms are much improved. He is requesting another liter of IV fluids. This will be administered before discharge. Departure Impression Primary Impression: Nausea vomiting and diarrhea Additional Impression: Epigastric pain Disposition: HOME, SELF-CARE Condition: Improved Departure-Patient Inst. Decision time for Depature: 07:00 Referrals: NO,LOCAL PHYSICIAN (PCP/Family) Primary Care Physician Patient Instructions: Acute Abdomen (Belly Pain), Adult (DC), Nausea and Vomiting, Adult Add. Discharge Instructions: Consume primarily a clear liquid diet today. Gradually advance your diet with small quantities of bland food as tolerated. Dissolve the Zofran (ondansetron) under the tongue every 4 hours as needed for nausea and vomiting. It is advisable to take an antacid such as Pepcid (famotidine) or omeprazole for the next few days to help with stomach irritation. Return to care if symptoms are worsening. You may take Tylenol (acetaminophen) up to 1000 mg every 6 hours as needed for pain. All discharge instructions reviewed with patient and/or family. Voiced understanding. Scripts Ondansetron (Zofran Odt) 4 Mg Tab.rapdis 4 MG SL Q4H PRN for NAUSEA/VOMITING-1ST LINE, #10 TAB Prov: JOURDAN FISHMAN MD 07/07/17 JOURDAN FISHMAN MD Jul 07, 2017 06:35
[2017-07-07 06:47] LABS: BAND NEUTROPHILS 1 %; BASOPHILS % (MANUAL) 0 %; EOSINOPHILS % (MANUAL) 0 %; LYMPHOCYTES % (MANUAL) 4 %; MONOCYTES % (MANUAL) 7 %; NEUTROPHILS % (MANUAL) 83 %; RBC MORPH NORMAL; REACTIVE LYMPHOCYTES 5 %
[2017-07-07 06:56] LABS: ALANINE AMINOTRANSFERASE 21 U/L (0-55); ALBUMIN 4.8 GM/DL (3.2-4.5); ALKALINE PHOSPHATASE 65 U/L (40-136); BILIRUBIN,TOTAL 1.6 MG/DL (0.1-1.0); BUN/CREATININE RATIO 22; CALCIUM 9.6 MG/DL (8.5-10.1); CARBON DIOXIDE 23 MMOL/L (21-32); CHLORIDE 104 MMOL/L (98-107); CREATININE SERUM 1.01 MG/DL (0.60-1.30); GFR ESTIMATED > 60; GLUCOSE 126 MG/DL (70-105); LIPASE 40 U/L (8-78); MAGNESIUM 2.1 MG/DL (1.8-2.4); POTASSIUM 4.1 MMOL/L (3.6-5.0); SODIUM 140 MMOL/L (135-145); TOTAL PROTEIN 8.1 GM/DL (6.4-8.2)
[2017-07-07] MEDS ORDERED: NS IV 1000 ML 1,000 ML IV ONE (06:57)
[2017-07-07] MEDS ORDERED: ONDA4TAB8 SL (07:02)
[2017-07-07 07:39] VITALS: BP 135/85
[2017-07-07] MEDS ORDERED: raNItidine 50 MG/2 ML INJ (ZANTAC) IV ONE (09:00)
== END 2017-07-07 07:39 | disposition home or self-care (01) ==
LOC: EDUNIT# 05:49 → ER 05:51
DX: R11.2 Nausea with vomiting, unspecified (principal); R19.7 Diarrhea, unspecified; R10.13 Epigastric pain; J45.909 Unspecified asthma, uncomplicated; K21.9 Gastro-esophageal reflux disease without esophagitis; F41.9 Anxiety disorder, unspecified; F32.9 Major depressive disorder, single episode, unspecified; F12.10 Cannabis abuse, uncomplicated; F17.210 Nicotine dependence, cigarettes, uncomplicated
CPT/HCPCS: 36415; 80053; 83690; 83735; 85007; 85027; 96361; 96374; 96375

== ENCOUNTER 2017-10-08 15:34 | Emergency (ER) | payer BC ==
[~2017-10-08] VITALS: Ht 170.2 cm; Wt 81.6 kg
[~2017-10-08 15:34] MED LIST changes: +ONDA4TAB8 SL
[2017-10-08] MEDS ORDERED: TERB15CR6 TP (16:32)
--- NOTE | 2017-10-08 16:32 | ED Integumentary General ---
General Chief Complaint: Skin/Wound Problems Stated Complaint: WHITE SPOTS Source: patient Exam Limitations: no limitations History of Present Illness Date Seen by Provider: Oct 08, 2017 Time Seen by Provider: 16:28 Initial Comments To ER with itchy white spots around his neck first began about 1-2 weeks ago. Timing/Duration: just prior to arrival Severity: moderate Associated Symptoms: denies symptoms Allergies and Home Medications Allergies Coded Allergies: No Known Drug Allergies (Unverified , 01/14/11) Home Medications Hydroxyzine Pamoate 25 Mg Capsule, 25 MG PO Q6H PRN for ANXIETY Prescribed by: MELANY ZAYAS on 03/30/17 1648 Ondansetron 4 Mg Tab.rapdis, 4 MG SL Q4H PRN for NAUSEA/VOMITING-1ST LINE Prescribed by: JOURDAN ESQUIVEL on 07/07/17 0702 Patient Home Medication List Home Medication List Reviewed: Yes Constitutional: see HPI EENTM: see HPI Respiratory: no symptoms reported Cardiovascular: no symptoms reported Genitourinary: no symptoms reported Musculoskeletal: no symptoms reported Skin: no symptoms reported Psychiatric/Neurological: No Symptoms Reported Endocrine: See HPI Past Vvekdxi-Oezqsz-Poulsr Hx Patient Social History Drug of Choice: marijuana Type Used: Cigarettes 2nd Hand Smoke Exposure: No Recent Foreign Travel: No Contact w/Someone Who Travel: No Recent Hopitalizations: No Immunizations Up To Date Tetanus Booster (TDap): Less than 5yrs Date of Influenza Vaccine: Jan 13, 2014 Seasonal Allergies Seasonal Allergies: No Past Medical History Surgeries: Yes (tubes in ears) Ear Surgery Respiratory: Yes Asthma Cardiac: No Neurological: No Reproductive Disorders: No Genitourinary: No Gastrointestinal: Yes Gastroesophageal Reflux Musculoskeletal: No Endocrine: No HEENT: No Cancer: No Psychosocial: Yes Anxiety, Depression Integumentary: No Blood Disorders: No Family Medical History No Pertinent Family Hx Physical Exam Vital Signs Capillary Refill : General Appearance: WD/WN, no apparent distress HEENT: other (well demarcated scaly hypopigmented macules around the neck bilaterally) Neck: non-tender, full range of motion Cardiovascular: regular rate, rhythm, no murmur Respiratory: no respiratory distress, no accessory muscle use Neurologic/Psychiatric: alert, normal mood/affect, oriented x 3 Skin: normal color, warm/dry Skin Problem Location: neck Skin Problem Character: macules, scales Procedures/Interventions Suture Size: 4-0 Departure Impression Primary Impression: Tinea corporis Disposition: 01 HOME, SELF-CARE Condition: Stable Departure-Patient Inst. Decision time for Depature: 16:30 Referrals: NO,LOCAL PHYSICIAN (PCP/Family) Primary Care Physician Patient Instructions: Tinea Versicolor Add. Discharge Instructions: 1. Apply the antifungal cream to the affected area twice daily for 7 days. Follow-up with your regular doctor next week. You may take Benadryl as needed for any itching. All discharge instructions reviewed with patient and/or family. Voiced understanding. Scripts Terbinafine HCl (Terbinafine) 15 Gm Cream..g. 1 GM TP BID for 7 Days, #2 TUBE Prov: MELANY ZAYAS APRN 10/08/17 MELANY ZAYAS APRN Oct 08, 2017 16:32
[2017-10-08 16:37] VITALS: BP 132/90
== END 2017-10-08 16:38 | disposition home or self-care (01) ==
LOC: EDUNIT# 15:34 → ER 15:35
DX: B35.4 Tinea corporis (principal); J45.909 Unspecified asthma, uncomplicated; K21.9 Gastro-esophageal reflux disease without esophagitis; F41.9 Anxiety disorder, unspecified; F32.9 Major depressive disorder, single episode, unspecified; F12.10 Cannabis abuse, uncomplicated
CPT/HCPCS: 99282

== ENCOUNTER 2018-10-15 19:08 | Emergency (ER) | payer BC ==
[~2018-10-15] VITALS: Ht 172.7 cm; Wt 79.4 kg
[~2018-10-15 19:08] MED LIST changes: +TERB15CR6 TP
--- OUTSIDE RECORDS SUMMARY | 2018-10-15 19:14 | XMS REPORT | Continuity of Care Document ---
Author Organization Unknown Address Unknown Phone Unavailable Allergies Active Description Code Type Severity Reaction Onset Reported/Identified Relationship to Patient Clinical Status Yes No Known Drug Allergies [id number] Drug Allergy Unknown N/A 01/14/2011 Medications There is no data. Problems Date Dx Coded Attending Type Code Diagnosis Diagnosed By 09/07/2013 MELANY ZAYAS APRN Ot 300.00 ANXIETY STATE NOS 09/07/2013 MELANY ZAYAS APRN Ot 787.03 VOMITING ALONE 10/06/2013 MELANY ZAYAS APRN Ot 787.01 NAUSEA WITH VOMITING 01/05/2014 MELANY ZAYAS APRN Ot 535.50 UNSP GASTRITIS GASTRODUODENITIS W/O ME 01/05/2014 MELANY ZAYAS APRN Ot 564.1 IRRITABLE BOWEL SYNDROME 01/05/2014 MELANY ZAYAS ACTIVITIES DIRECTOR SCOUTING Ot 789.06 ABDOMINAL PAIN, EPIGASTRIC 04/06/2014 BENNIE WEBSTER, ANA Lewis Ot 276.51 DEHYDRATION 04/06/2014 BENNIE WEBSTER, ANA Lewis Ot 787.01 NAUSEA WITH VOMITING 07/09/2015 MELANY ZAYAS ACTIVITIES DIRECTOR SCOUTING Ot F17.210 NICOTINE DEPENDENCE, CIGARETTES, UNCOMPL 07/09/2015 MELANY ZAYAS ACTIVITIES DIRECTOR SCOUTING Ot F41.9 ANXIETY DISORDER, UNSPECIFIED 07/10/2015 MELANY ZAYAS ACTIVITIES DIRECTOR SCOUTING Ot F17.210 NICOTINE DEPENDENCE, CIGARETTES, UNCOMPL 07/10/2015 MELANY ZAYAS ACTIVITIES DIRECTOR SCOUTING Ot F41.9 ANXIETY DISORDER, UNSPECIFIED 09/30/2015 MARILEE DO, ALFREDO K Ot F12.10 CANNABIS ABUSE, UNCOMPLICATED 09/30/2015 MARILEE , ALFREDO K Ot F17.210 NICOTINE DEPENDENCE, CIGARETTES, UNCOMPL 09/30/2015 MARILEE , ALFREDO K Ot K29.70 GASTRITIS, UNSPECIFIED, WITHOUT BLEEDING 09/30/2015 MARILEE CHATTERJEE ALFREDO K Ot R10.13 EPIGASTRIC PAIN 10/01/2015 MARILEE DO ALFREDO K Ot F12.10 CANNABIS ABUSE, UNCOMPLICATED 10/01/2015 KYAW HUNT DOGrace Lozano Ot F17.210 NICOTINE DEPENDENCE, CIGARETTES, UNCOMPL 10/01/2015 KYAW HUNT DOGrace Lozano Ot K29.70 GASTRITIS, UNSPECIFIED, WITHOUT BLEEDING 10/01/2015 KYAW HUNT DOGrace Lozano Ot R10.13 EPIGASTRIC PAIN 02/06/2016 MELANY ZAYAS APRN Ot S83.92XA SPRAIN OF UNSPECIFIED SITE OF LEFT KNEE, 02/06/2016 MELANY ZAYAS APRN Ot S89.92XA UNSPECIFIED INJURY OF LEFT LOWER LEG, IN 02/06/2016 MELANY ZAYAS APRN Ot X50.9XXA OTHER AND UNSPECIFIED OVREXRTN OR STRNOU 02/06/2016 MELANY ZAYAS APRN Ot Y92.[address] 02/06/2016 MELANY ZAYAS APRN Ot Y93.61 ACTIVITY, CROATIAN TACKLE FOOTBALL 02/06/2016 MELANY ZAYAS APRN Ot [...] Ot K29.70 GASTRITIS, UNSPECIFIED, WITHOUT BLEEDING 05/16/2016 ZAYAS, PETER J ACTIVITIES DIRECTOR SCOUTING Ot R10.13 EPIGASTRIC PAIN 05/17/2016 MELANY ZAYAS ACTIVITIES DIRECTOR SCOUTING Ot F12.21 CANNABIS DEPENDENCE, IN REMISSION 05/17/2016 MELANY ZAYAS APRN Ot F17.210 NICOTINE DEPENDENCE, CIGARETTES, UNCOMPL 05/17/2016 MELANY ZAYAS APRN Ot F41.9 ANXIETY DISORDER, UNSPECIFIED 05/17/2016 MELANY ZAYAS ACTIVITIES DIRECTOR SCOUTING Ot K29.70 GASTRITIS, UNSPECIFIED, WITHOUT BLEEDING 05/17/2016 [...] F32.9 MAJOR DEPRESSIVE DISORDER, SINGLE EPISOD 01/21/2017 NAGELIA RODRIGUEZ Ot F41.9 ANXIETY DISORDER, UNSPECIFIED 01/21/2017 [...] F32.9 MAJOR DEPRESSIVE DISORDER, SINGLE EPISOD 03/30/2017 MELANY ZAYAS ACTIVITIES DIRECTOR SCOUTING Ot F41.9 ANXIETY DISORDER, UNSPECIFIED 03/30/2017 MELANY ZAYAS ACTIVITIES DIRECTOR SCOUTING Ot J45.909 UNSPECIFIED ASTHMA, UNCOMPLICATED 03/30/2017 MELANY ZAYAS ACTIVITIES DIRECTOR SCOUTING Ot K21.9 GASTRO-ESOPHAGEAL REFLUX DISEASE WITHOUT 03/30/2017 MELANY ZAYAS ACTIVITIES DIRECTOR SCOUTING Ot R11.2 NAUSEA WITH VOMITING, UNSPECIFIED 04/03/2017 MELANY ZAYAS ACTIVITIES DIRECTOR SCOUTING Ot F12.90 CANNABIS USE, UNSPECIFIED, UNCOMPLICATED 04/03/2017 MELANY ZAYAS ACTIVITIES DIRECTOR SCOUTING Ot F32.9 MAJOR DEPRESSIVE DISORDER, SINGLE EPISOD 04/03/2017 MELANY ZAYAS ACTIVITIES DIRECTOR SCOUTING Ot F41.9 ANXIETY DISORDER, UNSPECIFIED 04/03/2017 MELANY ZAYAS APRN Ot J45.909 UNSPECIFIED ASTHMA, UNCOMPLICATED 04/03/2017 MELANY ZAYAS APRN Ot K21.9 GASTRO-ESOPHAGEAL REFLUX DISEASE WITHOUT 04/03/2017 MELANY ZAYAS ACTIVITIES DIRECTOR SCOUTING Ot R11.2 NAUSEA WITH VOMITING, UNSPECIFIED 07/07/2017 SRAVANTHI WEBSTER, JOURDAN T Ot F12.10 CANNABIS ABUSE, UNCOMPLICATED 07/07/2017 SRAVANTHI WEBSTER, JOURDAN T Ot F17.210 NICOTINE DEPENDENCE, CIGARETTES, UNCOMPL 07/07/2017 SRAVANTHI WEBSTER, JOURDAN T Ot F32.9 MAJOR DEPRESSIVE DISORDER, SINGLE EPISOD 07/07/2017 SRAVANTHI WEBSTER, JOURDAN T Ot F41.9 ANXIETY DISORDER, UNSPECIFIED 07/07/2017 SRAVANTHI WEBSTER, JORUDAN T Ot J45.909 UNSPECIFIED ASTHMA, UNCOMPLICATED 07/07/2017 SRAVANTHI WEBSTER, JOURDAN T Ot K21.9 GASTRO-ESOPHAGEAL REFLUX DISEASE WITHOUT 07/07/2017 SRAVANTHI WEBSTER, JOURDAN T Ot R10.13 EPIGASTRIC PAIN 07/07/2017 SRAVANTHI WEBSTER, JOURDAN T Ot R11.2 NAUSEA WITH VOMITING, UNSPECIFIED 07/07/2017 SRAVANTHI WEBSTER, JOURDAN T Ot R19.7 DIARRHEA, UNSPECIFIED 07/10/2017 SRAVANTHI WEBSTER, JOURDAN T Ot F12.10 CANNABIS ABUSE, UNCOMPLICATED 07/10/2017 SRAVANTHI WEBSTER, JOURDAN T Ot F17.210 NICOTINE DEPENDENCE, CIGARETTES, UNCOMPL 07/10/2017 SRAVANTHI WEBSTER, JOURDAN Guzman Ot F32.9 MAJOR DEPRESSIVE DISORDER, SINGLE EPISOD 07/10/2017 SRAVANTHI WEBSTER, JOURDAN Guzman Ot F41.9 ANXIETY DISORDER, UNSPECIFIED 07/10/2017 SRAVANTHI WEBSTER, JOURDAN Guzman Ot J45.909 UNSPECIFIED ASTHMA, UNCOMPLICATED 07/10/2017 SRAVANTHI WEBSTER, JOURDAN Guzman Ot K21.9 GASTRO-ESOPHAGEAL REFLUX DISEASE WITHOUT 07/10/2017 SRAVANTHI WEBSTER, JOURDAN Guzman Ot R10.13 EPIGASTRIC PAIN 07/10/2017 SRAVANTHI WEBSTER, JOURDAN Guzman Ot R11.2 NAUSEA WITH VOMITING, UNSPECIFIED 07/10/2017 SRAVANTHI WEBSTER, JOURDAN Guzman Ot R19.7 DIARRHEA, UNSPECIFIED 10/08/2017 MELANY ZAYAS APRN Ot B35.4 TINEA CORPORIS 10/08/2017 MELANY ZAYAS APRN Ot F12.10 CANNABIS ABUSE, UNCOMPLICATED 10/08/2017 MELANY ZAYAS APRN Ot F32.9 MAJOR DEPRESSIVE DISORDER, SINGLE EPISOD 10/08/2017 MELANY ZAYAS APRN Ot F41.9 ANXIETY DISORDER, UNSPECIFIED 10/08/2017 MELANY ZAYAS APRN Ot J45.909 UNSPECIFIED ASTHMA, UNCOMPLICATED 10/08/2017 MELANY ZAYAS APRN Ot K21.9 GASTRO-ESOPHAGEAL REFLUX DISEASE WITHOUT 10/08/2017 MELANY ZAYAS APRN Ot L29.9 PRURITUS, UNSPECIFIED 10/10/2017 MELANY ZAYAS APRN Ot B35.4 TINEA CORPORIS 10/10/2017 MELANY ZAYAS ACTIVITIES DIRECTOR SCOUTING Ot F12.10 CANNABIS ABUSE, UNCOMPLICATED 10/10/2017 MELANY ZAYAS APRN Ot F32.9 MAJOR DEPRESSIVE DISORDER, SINGLE EPISOD 10/10/2017 MELANY ZAYAS APRN Ot F41.9 ANXIETY DISORDER, UNSPECIFIED 10/10/2017 MELANY ZAYAS APRN Ot J45.909 UNSPECIFIED ASTHMA, UNCOMPLICATED 10/10/2017 MELANY ZAYAS APRN Ot K21.9 GASTRO-ESOPHAGEAL REFLUX DISEASE WITHOUT 10/10/2017 MELANY ZAYAS APRN Ot L29.9 PRURITUS, UNSPECIFIED Procedures There is no data. Results [...] Automated erythrocyte mean corpuscular hemoglobin concentration measurement (mass/volume) 35 g/dL 32-36 Automated erythrocyte distribution width ratio 12.1 % 10.0- 14.5 Automated blood platelet count (count/volume) 235 10*3/uL [...] Blood monocytes automated count (number/volume) 0.8 10*3 0.0- 1.0 Automated eosinophil count 0.0 10*3/uL 0.0-0.3 Automated [...] Serum or plasma aspartate aminotransferase measurement (enzymatic activity/volume) 126 U/L 5-34 Serum or plasma alanine aminotransferase measurement (enzymatic activity/volume) 53 U/L 0-55 Serum or plasma protein measurement (mass/volume) 7.6 g/dL 6.4-8.2 Serum or plasma albumin measurement (mass/volume) 4.6 g/dL 3.2-4.5 Serum or plasma thyrotropin measurement by detection limit <=0.05 miu/l (units/volume) - 05/04/16 13:18 Serum or plasma thyrotropin measurement by detection limit <=0.05 miu/l (units/volume) 0.46 u[iU]/mL 0.35-4.94 Serum or plasma salicylates [...] gravity of urine by test strip 1.015 1.016-1.022 Urine protein assay by test strip, semi-quantitative [...] sediment leukocyte count by microscopy (number/high power field) NONE NRG Bacteria detection in urine sediment [...] Automated erythrocyte mean corpuscular hemoglobin concentration measurement (mass/volume) 35 g/dL 32-36 Automated erythrocyte distribution width ratio 12.6 % 10.0- 14.5 Automated blood platelet count (count/volume) 216 10*3/uL [...] Blood monocytes automated count (number/volume) 1.4 10*3 0.0- 1.0 Automated eosinophil count 0.1 10*3/uL 0.0-0.3 Automated [...] Serum or plasma aspartate aminotransferase measurement (enzymatic activity/volume) 33 U/L 5-34 Serum or plasma alanine aminotransferase measurement (enzymatic activity/volume) 70 U/L 0-55 Serum or plasma protein measurement (mass/volume) 7.7 g/dL 6.4-8.2 Serum or plasma albumin measurement (mass/volume) 4.6 g/dL 3.2-4.5 Complete urinalysis with reflex to culture - 05/16/16 16:15 Urine color determination YELLOW NRG Urine clarity determination CLEAR NRG Urine pH measurement by test strip 6 5-9 Specific gravity of urine by test strip 1.025 1.016-1.022 Urine protein assay by test strip, semi-quantitative [...] sediment leukocyte count by microscopy (number/high power field) NONE NRG Bacteria detection in urine sediment [...] Automated erythrocyte mean corpuscular hemoglobin concentration measurement (mass/volume) 35 g/dL 32-36 Automated erythrocyte distribution width ratio 12.5 % 10.0- 14.5 Automated blood platelet count (count/volume) 212 10*3/uL [...] Blood monocytes automated count (number/volume) 0.8 10*3 0.0- 1.0 Automated eosinophil count 0.1 10*3/uL 0.0-0.3 Automated [...] Serum or plasma aspartate aminotransferase measurement (enzymatic activity/volume) 17 U/L 5-34 Serum or plasma alanine aminotransferase measurement (enzymatic activity/volume) 16 U/L 0-55 Serum or plasma protein measurement (mass/volume) 7.8 g/dL 6.4-8.2 Serum or plasma albumin measurement (mass/volume) 4.6 g/dL 3.2-4.5 Lipase - 10/19/16 14:36 Lipase 9 U/L 8-78 Blood lactic acid measurement (moles/volume) - 10/19/16 14:51 Blood lactic acid measurement (moles/volume) 1.80 mmol/L 0.50- 2.00 Complete urinalysis with reflex to culture - 10/19/16 14:51 Urine color determination YELLOW NRG Urine clarity determination CLEAR NRG Urine pH measurement by test strip 6 5-9 Specific gravity of urine by test strip 1.025 1.016-1.022 Urine protein assay by test strip, semi-quantitative [...] sediment leukocyte count by microscopy (number/high power field) RARE NRG Bacteria detection in urine sediment [...] Automated erythrocyte mean corpuscular hemoglobin concentration measurement (mass/volume) 36 g/dL 32-36 Automated erythrocyte distribution width ratio 11.8 % 10.0- 14.5 Automated blood platelet count (count/volume) 218 10*3/uL [...] Blood monocytes automated count (number/volume) 0.8 10*3 0.0- 1.0 Automated eosinophil count 0.0 10*3/uL 0.0-0.3 Automated [...] Serum or plasma aspartate aminotransferase measurement (enzymatic activity/volume) 19 U/L 5-34 Serum or plasma alanine aminotransferase measurement (enzymatic activity/volume) 21 U/L 0-55 Serum or plasma protein measurement (mass/volume) 8.2 g/dL 6.4-8.2 Serum or plasma albumin measurement (mass/volume) 4.7 g/dL 3.2-4.5 Lipase - 03/30/17 16:12 Lipase 6 U/L 8-78 Complete blood count (CBC) with automated white blood cell (WBC) differential - 07/07/17 06:26 Blood leukocytes automated count (number/volume) 10.3 10*3/uL 4.3-11.0 Blood erythrocytes automated count (number/volume) 5.30 10*6/uL 4.35-5.85 Venous blood hemoglobin measurement (mass/volume) 16.4 g/dL 13.3-17.7 Blood hematocrit (volume fraction) 46 % 40-54 Automated erythrocyte mean corpuscular volume 88 [foz_us] 80-99 Automated erythrocyte mean corpuscular hemoglobin (mass per erythrocyte) 31 pg 25-34 Automated erythrocyte mean corpuscular hemoglobin concentration measurement (mass/volume) 35 g/dL 32-36 Automated erythrocyte distribution width ratio 11.8 % 10.0- 14.5 Automated blood platelet count (count/volume) 209 10*3/uL 130-400 Automated blood platelet mean volume measurement 9.1 [foz_us] 7.4-10.4 Automated blood neutrophils/100 leukocytes 87 % 42-75 Automated blood lymphocytes/100 leukocytes 5 % 12-44 Blood monocytes/100 leukocytes 8 % 0-12 Automated blood eosinophils/100 leukocytes 0 % 0-10 Automated blood basophils/100 leukocytes 0 % 0-10 Blood neutrophils automated count (number/volume) 9.0 10*3 1.8-7.8 Blood lymphocytes automated count (number/volume) 0.5 10*3 1.0-4.0 Blood monocytes automated count (number/volume) 0.8 10*3 0.0- 1.0 Automated eosinophil count 0.0 10*3/uL 0.0-0.3 Automated blood basophil count (count/volume) 0.0 10*3/uL 0.0-0.1 Blood manual differential performed detection - 07/07/17 06:26 Blood monocytes/100 leukocytes 7 % NRG Manual blood segmented neutrophils/100 leukocytes 83 % NRG Blood band neutrophils/100 leukocytes 1 % NRG Manual blood lymphocytes/100 leukocytes 4 % NRG Manual eosinophils/100 leukocytes in nose 0 % NRG Manual blood basophils/100 leukocytes 0 % NRG Blood lymphocytes variant/100 leukocytes 5 % NRG Blood erythrocyte morphology finding identification NORMAL NRG Comprehensive metabolic panel - 07/07/17 06:26 Serum or plasma sodium measurement (moles/volume) 140 mmol/L 135-145 Serum or plasma potassium measurement (moles/volume) 4.1 mmol/L 3.6-5.0 Serum or plasma chloride measurement (moles/volume) 104 mmol/L 98-107 Carbon dioxide 23 mmol/L 21-32 Serum or plasma anion gap determination (moles/volume) 13 mmol/L 5-14 Serum or plasma urea nitrogen measurement (mass/volume) 22 mg/dL 7-18 Serum or plasma creatinine measurement (mass/volume) 1.01 mg/dL 0.60-1.30 Serum or plasma urea nitrogen/creatinine mass ratio 22 NRG Serum or plasma creatinine measurement with calculation of estimated glomerular filtration rate > NRG Serum or plasma glucose measurement (mass/volume) 126 mg/dL 70-105 Serum or plasma calcium measurement (mass/volume) 9.6 mg/dL 8.5-10.1 Serum or plasma total bilirubin measurement (mass/volume) 1.6 mg/dL 0.1-1.0 Serum or plasma alkaline phosphatase measurement (enzymatic activity/volume) 65 U/L 40-136 Serum or plasma aspartate aminotransferase measurement (enzymatic activity/volume) 17 U/L 5-34 Serum or plasma alanine aminotransferase measurement (enzymatic activity/volume) 21 U/L 0-55 Serum or plasma protein measurement (mass/volume) 8.1 g/dL 6.4-8.2 Serum or plasma albumin measurement (mass/volume) 4.8 g/dL 3.2-4.5 Magnesium - 07/07/17 06:26 Magnesium 2.1 mg/dL 1.8-2.4 Lipase - 07/07/17 06:26 Lipase 40 U/L 8-78 Encounters ACCT No. Visit Date/Time Discharge Status Pt. Type Provider Facility Loc./Unit Complaint [id number] 10/08/2017 15:35:00 10/08/2017 16:38:00 DIS Emergency MELANY ZAYAS APRN [facility] ER WHITE SPOTS [id number] 07/07/2017 05:51:00 07/07/2017 07:39:00 DIS Emergency JOURDAN FISHMAN MD [facility] ER N,V,D [id number] 03/30/2017 15:14:00 03/30/2017 17:00:00 DIS Emergency MELANY ZAYAS APRN [facility] ER ABD PAIN,VOMITING [id number] 01/21/2017 13:02:00 01/21/2017 13:52:00 DIS Emergency ANGELIA RODRIGUEZ [facility] ER R HAND LACERATION [id number] 10/19/2016 13:54:00 10/19/2016 16:06:00 DIS Emergency ANA AVERY MD [facility] ER STOMACH ACHE,VOMITING [id number] 05/16/2016 13:27:00 05/16/2016 16:40:00 DIS Emergency MELANY ZAYAS APRN [facility] ER ABD PAIN/MED REFILL [id number] 05/04/2016 11:51:00 05/04/2016 14:24:00 DIS Emergency ANGELIA RODRIGUEZ [facility] ER ANXIETY [id number] 02/06/2016 10:44:00 02/06/2016 11:46:00 DIS Emergency MELANY ZAYAS APRN [facility] ER L LEG INJ [id number] 09/30/2015 07:43:00 09/30/2015 09:44:00 DIS Emergency MARILEE ALFREDO Marta [facility] ER VOMITING/NAUSEA [id number] 07/09/2015 13:51:00 07/09/2015 15:36:00 DIS Emergency MELANY ZAYAS APRN [facility] ER ANXIETY ATTACK [id number] 04/06/2014 17:16:00 04/06/2014 21:32:00 DIS Emergency ANA AVERY MD [facility] ER BACK PAIN,VOMITING BLOOD [id number] 01/05/2014 10:19:00 01/05/2014 12:28:00 DIS Emergency MELANY ZAYAS APRN [facility] ER ABD PAIN [id number] 10/06/2013 10:41:00 10/06/2013 12:18:00 DIS Emergency MELANY ZAYAS APRN [facility] ER VOMITING [id number] 09/07/2013 11:21:00 09/07/2013 12:36:00 DIS Emergency MELANY ZAYAS APRN [facility] ER ANXIETY,VOMITING [id number] 03/31/2013 10:14:00 03/31/2013 12:32:00 DIS Emergency [id number] 10/15/2018 19:09:00 ACT Emergency JEREMIAH WEBSTER, YARIEL Pederson [facility] ER HEADACHE [id number] 04/18/2014 15:42:10 ACT Document Registration
[2018-10-15] MEDS ORDERED: diphenhydrAMINE 50 MG/ML INJ (BENADRYL) IM ONE (19:30)
[2018-10-15] MEDS ORDERED: KETOROLAC 30 MG/ML VIAL IM ONE (19:30)
[2018-10-15] MEDS ORDERED: PROCHLORPERAZINE 10 MG/2ML INJ (COMPAZINE) IM ONE (19:30)
[2018-10-15] MEDS ORDERED: AMOX500C2 PO (19:32)
[2018-10-15] MEDS ORDERED: METH4TAB PO (19:33)
--- NOTE | 2018-10-15 19:33 | ED Headache ---
General Chief Complaint: Head/Cervical Problems Stated Complaint: HEADACHE Nursing Triage Note: Patient ambulatory to Er with complaint of headache x 3 days with nausea and vomiting. Patient states last episode of vomiting was around 02:00 AM. Patient denies any injuries to his head. Nursing Sepsis Screen: No Definite Risk Source: patient Exam Limitations: no limitations History of Present Illness Date Seen by Provider: Oct 15, 2018 Time Seen by Provider: 19:29 Initial Comments To ER with a frontal headache for 3 days. No fevers or chills but he has been sneezing a lot. Denies any sore throat or rhinorrhea. 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 Timing/Duration: other (frontal ES) Severity/Quality: moderate Location: frontal Associated Symptoms: denies symptoms Allergies and Home Medications Allergies Coded Allergies: No Known Drug Allergies (Unverified , 01/14/11) Home Medications Amoxicillin 500 Mg Capsule, 1,000 MG PO BID Prescribed by: MELANY ZAYAS on 10/15/18 193 Hydroxyzine Pamoate 25 Mg Capsule, 25 MG PO Q6H PRN for ANXIETY Prescribed by: MELANY ZAYAS on 03/30/17 1648 Methylprednisolone 4 Mg Tab.ds.pk, 4 MG PO UD PER DOSE PACK INSTRUCTIONS Prescribed by: MELANY ZAYAS on 10/15/18 193 Ondansetron 4 Mg Tab.rapdis, 4 MG SL Q4H PRN for NAUSEA/VOMITING-1ST LINE Prescribed by: JOURDAN ESQUIVEL on 07/07/17 0702 Terbinafine HCl 15 Gm Cream..g., 1 GM TP BID Prescribed by: MELANY ZAYAS on 10/08/17 1632 Patient Home Medication List Home Medication List Reviewed: Yes Review of Systems Review of Systems Constitutional: see HPI Eyes: No Symptoms Reported Ears, Nose, Mouth, Throat: no symptoms reported Respiratory: no symptoms reported Cardiovascular: no symptoms reported Genitourinary: no symptoms reported Musculoskeletal: no symptoms reported Skin: no symptoms reported Psychiatric/Neurological: No Symptoms Reported Past Dxyjqmx-Nmysij-Ljimkj Hx Patient Social History Alcohol Use: Denies Use Recreational Drug Use: Yes (marijuana) Drug of Choice: marijuana Smoking Status: Current Everyday Smoker Type Used: Cigarettes 2nd Hand Smoke Exposure: Yes Recent Foreign Travel: No Contact w/Someone Who Travel: No Recent Infectious Disease Expo: No Recent Hopitalizations: No Physical Abuse: No Sexual Abuse: No Mistreated: No Fear: No Immunizations Up To Date Tetanus Booster (TDap): Less than 5yrs PED Vaccines UTD: Yes Date of Influenza Vaccine: Jan 13, 2014 Seasonal Allergies Seasonal Allergies: No Past Medical History Surgeries: Yes (tubes in ears) Ear Surgery Respiratory: Yes Asthma Cardiac: No Neurological: Yes Headaches /Migraines Reproductive Disorders: No Genitourinary: No Gastrointestinal: Yes Gastroesophageal Reflux Musculoskeletal: No Endocrine: No HEENT: No Cancer: No Psychosocial: Yes Anxiety, Depression Integumentary: No Blood Disorders: No Family Medical History No Pertinent Family Hx Physical Exam Vital Signs Vital Signs - First Documented 10/15/18 19:11 Temp 97.9 Pulse 78 Resp 14 B/P (MAP) 138/93 (108) Pulse Ox 98 O2 Delivery Room Air Capillary Refill : Less Than 3 Seconds Height, Weight, BMI Height: 5'8.00" Weight: 175lbs. oz. [id number]; 25.39 BMI Method:Actual General Appearance: WD/WN, no apparent distress HEENT: PERRL/EOMI, normal ENT inspection, TMs normal Neck: non-tender, full range of motion Respiratory: no respiratory distress, no accessory muscle use Extremities: normal range of motion, non-tender Psychiatric: alert, oriented x 3 Crainal Nerves: normal hearing, normal speech, PERRL Skin: normal color, warm/dry Procedures/Interventions Suture Size: 4-0 Progress/Results/Core Measures Results/Orders My Orders Orders - MELANY ZAYAS APRN Ketorolac Injection (Toradol Injection) (10/15/18 19:30) Prochlorperazine Injection (Compazine In (10/15/18 19:30) Diphenhydramine Injection (Benadryl Inje (10/15/18 19:30) Medications Given in ED Current Medications Medications Dose Ordered Sig/Mario Route Start Time Stop Time Status Last Admin Dose Admin Diphenhydramine HCl 25 mg ONCE ONCE IM 10/15/18 19:30 10/15/18 19:31 DC 10/15/18 19:36 25 MG Ketorolac Tromethamine 30 mg ONCE ONCE IM 10/15/18 19:30 10/15/18 19:31 DC 10/15/18 19:37 30 MG Prochlorperazine Edisylate 10 mg ONCE ONCE IM 10/15/18 19:30 10/15/18 19:31 DC 10/15/18 19:36 10 MG Vital Signs/I&O 10/15/18 19:11 Temp 97.9 Pulse 78 Resp 14 B/P (MAP) 138/93 (108) Pulse Ox 98 O2 Delivery Room Air Blood Pressure Mean: 108 Departure Impression Primary Impression: Headache Qualified Codes: R51 - Headache Additional Impression: Acute frontal sinusitis Qualified Codes: J01.10 - Acute frontal sinusitis, unspecified Disposition: HOME, SELF-CARE Condition: Stable Departure-Patient Inst. Decision time for Depature: 19:30 Referrals: NO,LOCAL PHYSICIAN (PCP/Family) Primary Care Physician Patient Instructions: Sinus Headache (DC) Add. Discharge Instructions: 1. Return to ER for any concerns 2. Follow-up with your doctor next week 3. Antibiotics as directed. All discharge instructions reviewed with patient and/or family. Voiced understanding. Scripts Methylprednisolone (Medrol) 4 Mg Tab.ds.pk 4 MG PO UD for 6 Days, #21 PKG PER DOSE PACK INSTRUCTIONS Prov: MELANY ZAYAS APRN 10/15/18 Amoxicillin (Amoxicillin) 500 Mg Capsule 1000 MG PO BID, #28 CAP 0 Refills Prov: MELANY ZAYAS FRAUD REPRESENTATIVE 10/15/18 MELANY ZAYAS FRAUD REPRESENTATIVE Oct 15, 2018 19:33
--- NOTE | 2018-10-15 19:52 | NUR ---
Patient is awake and alert. He states his headache is improving after medications given.
[2018-10-15 20:24] VITALS: BP 138/93
== END 2018-10-15 20:32 | disposition home or self-care (01) ==
LOC: EDUNIT# 19:08 → ER 19:09
DX: J01.10 Acute frontal sinusitis, unspecified (principal); J45.909 Unspecified asthma, uncomplicated; G43.909 Migraine, unspecified, not intractable, without status migrainosus; K21.9 Gastro-esophageal reflux disease without esophagitis; F41.9 Anxiety disorder, unspecified; F32.9 Major depressive disorder, single episode, unspecified; F12.10 Cannabis abuse, uncomplicated; F17.210 Nicotine dependence, cigarettes, uncomplicated
CPT/HCPCS: 99284

== ENCOUNTER 2020-03-30 17:12 | Emergency (ER) | payer SELFPAY ==
[~2020-03-30] VITALS: Ht 170 cm; Wt 83.0 kg
[~2020-03-30 17:12] MED LIST changes: +AMOX500C2 PO; +METH4TAB PO
[2020-03-30] MEDS ORDERED: FAMOTIDINE 20MG/2ML IV (PEPCID) IV STA (17:27)
[2020-03-30] MEDS ORDERED: ANTACID SUSP 30 ML UDC (MYLANTA) PO ONE (17:30)
[2020-03-30] MEDS ORDERED: ONDANSETRON 4 MG/2 ML (SDV) Z0FRAN IVP ONE (17:30)
[2020-03-30] MEDS ORDERED: LIDOCAINE 2% VISCOUS 15 ML UDC PO ONE (17:30)
--- NOTE | 2020-03-30 17:36 | ED Chest Pain ---
General Chief Complaint: Chest Pain Stated Complaint: CP Nursing Triage Note: ARRIVED VIA AMB TO ROOM 05 WITH COMPLAINTS OF UPPERGASTRIC/CHEST PAIN X2 DAYS. Nursing Sepsis Screen: No Definite Risk Source: patient Exam Limitations: no limitations (MARIUM PAYNE MED STUDENT) History of Present Illness Date Seen by Provider: Mar 30, 2020 Time Seen by Provider: 17:20 Initial Comments This is a 25 year old male, who ambulated to the Emergency Department, presenting with a chief complaint of chest pain. The chest pain is 6/10 loca lized pain behind the sternum. He states that the pain has come and gone for the past 2 days. He hasn't had an appetite. He has nausea but denies having a cough or a fever. It becomes better with Benedryl and a nap. It is worse with stress and getting up after sleep. It is unaffected by deep breathes. He has had 1 similar episode last year. FamHx: heart attack (father - a couple of months ago) PSHx: ear tubes SocHx: smokes cigarettes and marijuana. no alcohol. no recreational drugs Medications: antacids Allergies to meds: none (MARIUM PAYNE MED STUDENT) Initial Comments Patient states he does have a history of acid reflux. He has been taking an gzre-vud-glthkal antacid medication, perhaps famotidine, with some benefit. He does not take it consistently. (JOURDAN FISHMAN MD) Allergies and Home Medications Allergies Coded Allergies: No Known Drug Allergies (Unverified , 01/14/11) Home Medications Amoxicillin 500 Mg Capsule, 1,000 MG PO BID Prescribed by: MELANY ZAYAS on 10/15/181931 Hydroxyzine Pamoate 25 Mg Capsule, 25 MG PO Q6H PRN for ANXIETY Prescribed by: MELANY ZAYAS on 03/30/17 1648 Methylprednisolone 4 Mg Tab.ds.pk, 4 MG PO UD PER DOSE PACK INSTRUCTIONS Prescribed by: MELANY ZAYAS on 10/15/181932 Ondansetron 4 Mg Tab.rapdis, 4 MG SL Q4H PRN for NAUSEA/VOMITING-1ST LINE Prescribed by: JOURDAN ESQUIVEL on 07/07/17 0702 Terbinafine HCl 15 Gm Cream..g., 1 GM TP BID Prescribed by: MELANY ZAYAS on 10/08/17 1632 Patient Home Medication List Home Medication List Reviewed: Yes (JOURDAN FISHMAN MD) Review of Systems Review of Systems Constitutional: no symptoms reported; No fever EENTM: No Symptoms Reported Respiratory: No Symptoms Reported; Denies Cough Cardiovascular: Chest Pain Gastrointestinal: Nausea Genitourinary: No Symptoms Reported Musculoskeletal: no symptoms reported Skin: no symptoms reported Psychiatric/Neurological: No Symptoms Reported Endocrine: No Symptoms Reported Hematologic/Lymphatic: No Symptoms Reported (MARIUM PAYNE) Gastrointestinal: See HPI Psychiatric/Neurological: Other (Psychosocial stressors) (JOURDAN FISHMAN MD) Past Eiktbkd-Jbrsok-Pcdpfl Hx Past Med/Social Hx: Reviewed Nursing Past Med/Soc Hx (JOURDAN FISHMAN MD) Patient Social History Alcohol Use: Denies Use Drug of Choice: marijuana Smoking Status: Current Everyday Smoker Type Used: Cigarettes 2nd Hand Smoke Exposure: Yes Recent Infectious Disease Expo: No Recent Hopitalizations: No (MARIUM PAYNE) Immunizations Up To Date Tetanus Booster (TDap): Less than 5yrs PED Vaccines UTD: Yes Date of Influenza Vaccine: Jan 13, 2014 (MARIUM PAYNE) Seasonal Allergies Seasonal Allergies: No (MARIUM PAYNE) Past Medical History Surgeries: Yes (tubes in ears) Ear Surgery Respiratory: Yes Asthma Cardiac: No Neurological: Yes Headaches /Migraines Reproductive Disorders: No Genitourinary: No Gastrointestinal: Yes Gastroesophageal Reflux Musculoskeletal: No Endocrine: No HEENT: No Cancer: No Psychosocial: Yes Anxiety, Depression Integumentary: No Blood Disorders: No (MARIUM PAYNE) Family Medical History No Pertinent Family Hx (MARIUM PAYNE) Physical Exam Vital Signs Vital Signs - First Documented 03/30/20 17:15 Temp 37.0 Pulse 96 Resp 16 B/P (MAP) 139/103 (115) Pulse Ox 97 O2 Delivery Room Air (JOURDAN FISHMAN MD) Vital Signs Capillary Refill : Less Than 3 Seconds (MARIUM PAYNE) Height, Weight, BMI Height: 5'8.00" Weight: 175lbs. oz. 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 Norm as Tested Skin: Normal Color, Warm/Dry (JOURDAN FISHMAN MD) Procedures/Interventions Suture Size: 4-0 (MARIUM PAYNE MED STUDENT) Progress/Results/Core Measures Results/Orders Lab Results Laboratory Tests Test 03/30/20 17:26 Range/Units White Blood Count 7.9 4.3-11.0 10^3/uL Red Blood Count 5.20 4.30-5.52 10^6/uL Hemoglobin 16.3 13.3-17.7 g/dL Hematocrit 47 40-54 % Mean Corpuscular Volume 90 80-99 fL Mean Corpuscular Hemoglobin 31 25-34 pg Mean Corpuscular Hemoglobin Concent 35 32-36 g/dL Red Cell Distribution Width 11.5 10.0-14.5 % Platelet Count 244 130-400 10^3/uL Mean Platelet Volume 8.9 L 9.0-12.2 fL Immature Granulocyte % (Auto) 0 % Neutrophils (%) (Auto) 76 H 42-75 % Lymphocytes (%) (Auto) 15 12-44 % Monocytes (%) (Auto) 8 0-12 % Eosinophils (%) (Auto) 0 0-10 % Basophils (%) (Auto) 0 0-10 % Neutrophils # (Auto) 6.1 1.8-7.8 10^3/uL Lymphocytes # (Auto) 1.2 1.0-4.0 10^3/uL Monocytes # (Auto) 0.7 0.0-1.0 10^3/uL Eosinophils # (Auto) 0.0 0.0-0.3 10^3/uL Basophils # (Auto) 0.0 0.0-0.1 10^3/uL Immature Granulocyte # (Auto) 0.0 0.0-0.1 10^3/uL Prothrombin Time 13.6 12.2-14.7 SEC INR Comment 1.0 0.8-1.4 Activated Partial Thromboplast Time 28 24-35 SEC Sodium Level 140 135-145 MMOL/L Potassium Level 3.8 3.6-5.0 MMOL/L Chloride Level 102 98-107 MMOL/L Carbon Dioxide Level 26 21-32 MMOL/L Anion Gap 12 5-14 MMOL/L Blood Urea Nitrogen 20 H 7-18 MG/DL Creatinine 0.95 0.60-1.30 MG/DL Estimat Glomerular Filtration Rate > 60 BUN/Creatinine Ratio 21 Glucose Level 98 70-105 MG/DL Calcium Level 9.9 8.5-10.1 MG/DL Corrected Calcium 8.5-10.1 MG/DL Magnesium Level 2.0 1.6-2.4 MG/DL Total Bilirubin 1.8 H 0.1-1.0 MG/DL Aspartate Amino Transf (AST/SGOT) 18 5-34 U/L Alanine Aminotransferase (ALT/SGPT) 16 0-55 U/L Alkaline Phosphatase 63 40-136 U/L Myoglobin 28.4 10.0-92.0 NG/ML Troponin I < 0.028 <0.028 NG/ML Total Protein 8.8 H 6.4-8.2 GM/DL Albumin 5.1 H 3.2-4.5 GM/DL (JOURDAN FISHMAN MD) My Orders Orders - JOURDAN FISHMAN MD Cbc With Automated Diff (03/30/20 17:27) Magnesium (03/30/20 17:27) Chest 1 View, Ap/Pa Only (03/30/20 17:27) Ekg Tracing (03/30/20 17:27) Comprehensive Metabolic Panel (03/30/20 17:27) Myoglobin Serum (03/30/20 17:27) Protime With Inr (03/30/20 17:27) Partial Thromboplastin Time (03/30/20 17:27) O2 (03/30/20 17:27) Monitor-Rhythm Ecg Trace Only (03/30/20 17:27) Ed Iv/Invasive Line Start (03/30/20 17:27) Troponin I (03/30/20 17:27) Ondansetron Injection (Zofran Injectio (03/30/20 17:30) Lidocaine 2% Viscous 15 Ml (Xylocaine Vi (03/30/20 17:30) Antacid Suspension (Mylanta Suspension (03/30/20 17:30) Famotidine Injection (Pepcid Injection) (03/30/20 17:27) (JOURDAN FISHMAN MD) Medications Given in ED (JOURDAN FISHMAN MD) Vital Signs/I&O 03/30/20 03/30/20 17:15 18:27 Temp 37.0 Pulse 96 86 Resp 16 16 B/P (MAP) 139/103 (115) 147/85 Pulse Ox 97 98 O2 Delivery Room Air Room Air (JOURDAN FISHMAN MD) Blood Pressure Mean: 115 Progress Progress Note : Progress Note Work-up was unremarkable. Chest pain resolved with GI cocktail, Pepcid, and Zofran. (JOURDAN FISHMAN MD) Initial ECG Impression Date: Mar 30, 2020 Initial ECG Impression Time: 17:19 Initial ECG Rate: 85 Initial ECG Rhythm: Normal Sinus Initial ECG Intervals: Normal Initial ECG Impression: Normal Comment Normal sinus rhythm with no ST elevation or depression. No abnormal intervals or axis deviation. (JOURDAN FISHMAN MD) Diagnostic Imaging Diagonstic Imaging: Xray Plain Films/CT/US/NM/MRI: chest Comments Chest x-ray viewed by me and report reviewed. See report below: NAME: ROCHELLE RODRIGUEZ [facility] REC#: [id number] PT STATUS: REG ER : 1995 PHYSICIAN: JOURDAN FISHMAN MD ADMIT DATE: 03/30/20/ER Signed Date of Exam:03/30/20 CHEST 1 VIEW, AP/PA ONLY INDICATION: Chest pain. FINDINGS: The heart size, mediastinal configuration, and pulmonary vascularity are within normal limits. There is no pleural effusion, pneumothorax, or pneumonia. The osseous structures are unremarkable. IMPRESSION: No acute cardiopulmonary abnormality. Dictated by: Dictated on workstation # [id number] Dict: 03/30/20 1804 Trans: 03/30/20 1810 EARL [id number] Interpreted by: LEON ABBOTT MD Electronically signed by: LEON ABBOTT MD 03/30/20 1810 (JOURDAN FISHMAN MD) Departure Impression Primary Impression: Atypical chest pain Disposition: HOME, SELF-CARE Condition: Improved Departure-Patient Inst. Decision time for Depature: 18:21 (JOURDAN FISHMAN MD) Referrals: NO,LOCAL PHYSICIAN (PCP/Family) Primary Care Physician Patient Instructions: Acid Reflux and Gastroesophageal Reflux Disease in Adults, Chest Pain (DC) Add. Discharge Instructions: Use famotidine (Pepcid) 20 mg twice daily and/or omeprazole (Prilosec) 20 mg twice a daily for at least 2 weeks. Avoid the following: Eating large meals, eating close to bedtime, caffeine, carbonation, chocolate, citrus fruits and juices, tomato products, spicy foods, fatty or greasy foods, mints, NSAID medications such as ibuprofen or naproxen, or anything else you know irritate your stomach. If pain has not completely resolved in 2 weeks, please follow-up with a primary care provider for further evaluation. Call with questions or concerns. Return to the emergency room for worsening condition. All discharge instructions reviewed with patient and/or family. Voiced understanding. MARIUM PAYNE MED STUDENT Mar 30, 2020 17:36 JOURDAN FISHMAN MD Mar 30, 2020 18:25
[2020-03-30 17:42] LABS: BASOPHILS % (AUTO) 0 % (0-10); EOSINOPHILS % (AUTO) 0 % (0-10); HEMATOCRIT 47 % (40-54); HEMOGLOBIN 16.3 g/dL (13.3-17.7); LYMPHOCYTES # (AUTO) 1.2 10^3/uL (1.0-4.0); LYMPHOCYTES % (AUTO) 15 % (12-44); MEAN CORPUSCULAR HEMOGLOBIN 31 pg (25-34); MEAN CORPUSCULAR HGB CONC 35 g/dL (32-36); MEAN CORPUSCULAR VOLUME 90 fL (80-99); MEAN PLATELET VOLUME 8.9 fL (9.0-12.2); MONOCYTES # (AUTO) 0.7 10^3/uL (0.0-1.0); MONOCYTES % (AUTO) 8 % (0-12); NEUTROPHILS # (AUTO) 6.1 10^3/uL (1.8-7.8); NEUTROPHILS % (AUTO) 76 % (42-75); PLATELET COUNT 244 10^3/uL (130-400); WHITE BLOOD COUNT 7.9 10^3/uL (4.3-11.0)
[2020-03-30 17:48] LABS: ALBUMIN 5.1 GM/DL (3.2-4.5); CHLORIDE 102 MMOL/L (98-107); POTASSIUM 3.8 MMOL/L (3.6-5.0); PROTHROMBIN TIME PATIENT 13.6 SEC (12.2-14.7); SODIUM 140 MMOL/L (135-145)
[2020-03-30 17:49] LABS: CALCIUM 9.9 MG/DL (8.5-10.1)
[2020-03-30 17:50] LABS: GLUCOSE 98 MG/DL (70-105); TOTAL PROTEIN 8.8 GM/DL (6.4-8.2)
[2020-03-30 17:51] LABS: CARBON DIOXIDE 26 MMOL/L (21-32)
[2020-03-30 17:52] LABS: BILIRUBIN,TOTAL 1.8 MG/DL (0.1-1.0)
[2020-03-30 17:54] LABS: ALKALINE PHOSPHATASE 63 U/L (40-136); CREATININE SERUM 0.95 MG/DL (0.60-1.30); GFR ESTIMATED > 60
[2020-03-30 17:55] LABS: BUN/CREATININE RATIO 21
[2020-03-30 17:57] LABS: ALANINE AMINOTRANSFERASE 16 U/L (0-55)
--- NOTE | 2020-03-30 18:08 | Diagnostic Imaging Report ---
INDICATION: Chest pain. FINDINGS: The heart size, mediastinal configuration, and pulmonary vascularity are within normal limits. There is no pleural effusion, pneumothorax, or pneumonia. The osseous structures are unremarkable. IMPRESSION: No acute cardiopulmonary abnormality. Dictated by: Dictated on workstation # [id number]
--- NOTE | 2020-03-30 18:19 | NUR ---
IN ROOM TALKING TO THE PT AT THIS TIME.
[2020-03-30 18:27] VITALS: BP 147/85
== END 2020-03-30 18:27 | disposition home or self-care (01) ==
LOC: EDUNIT# 17:12 → ER 17:14
DX: R07.89 Other chest pain (principal); J45.909 Unspecified asthma, uncomplicated; F41.9 Anxiety disorder, unspecified; F17.210 Nicotine dependence, cigarettes, uncomplicated; Z79.52 Long term (current) use of systemic steroids
CPT/HCPCS: 36415; 71045; 80053; 83735; 83874; 84484; 85025; 85610; 85730; 93005

== ENCOUNTER 2020-07-27 15:29 | Emergency (ER) | payer SELFPAY ==
[~2020-07-27] VITALS: Ht 172 cm; Wt 84.0 kg
[2020-07-27 15:59] LABS: BASOPHILS % (AUTO) 0 % (0-10); EOSINOPHILS # (AUTO) 0.1 10^3/uL (0.0-0.3); EOSINOPHILS % (AUTO) 1 % (0-10); HEMATOCRIT 47 % (40-54); LYMPHOCYTES # (AUTO) 2.5 10^3/uL (1.0-4.0); LYMPHOCYTES % (AUTO) 37 % (12-44); MEAN CORPUSCULAR HEMOGLOBIN 31 pg (25-34); MEAN CORPUSCULAR HGB CONC 34 g/dL (32-36); MEAN CORPUSCULAR VOLUME 91 fL (80-99); MEAN PLATELET VOLUME 8.5 fL (9.0-12.2); MONOCYTES # (AUTO) 0.8 10^3/uL (0.0-1.0); MONOCYTES % (AUTO) 12 % (0-12); NEUTROPHILS # (AUTO) 3.4 10^3/uL (1.8-7.8); NEUTROPHILS % (AUTO) 50 % (42-75); PLATELET COUNT 237 10^3/uL (130-400); WHITE BLOOD COUNT 6.7 10^3/uL (4.3-11.0)
[2020-07-27 16:03] LABS: ALBUMIN 4.5 GM/DL (3.2-4.5); CHLORIDE 105 MMOL/L (98-107); POTASSIUM 3.8 MMOL/L (3.6-5.0); SODIUM 141 MMOL/L (135-145)
[2020-07-27 16:04] LABS: CALCIUM 9.3 MG/DL (8.5-10.1); INR 0.9 (0.8-1.4); PROTHROMBIN TIME PATIENT 12.4 SEC (12.2-14.7)
[2020-07-27 16:05] LABS: GLUCOSE 110 MG/DL (70-105); TOTAL PROTEIN 7.9 GM/DL (6.4-8.2)
[2020-07-27 16:07] LABS: BILIRUBIN,TOTAL 0.5 MG/DL (0.1-1.0); CARBON DIOXIDE 28 MMOL/L (21-32)
--- NOTE | 2020-07-27 16:08 | Diagnostic Imaging Report ---
INDICATION: Chest pain Portable chest 4:07 PM Heart size and pulmonary vascularity are normal. Lungs are clear. There are no effusions or pneumothoraces. IMPRESSION: Negative chest Dictated by: Dictated on workstation # [id number]
[2020-07-27 16:09] LABS: ALKALINE PHOSPHATASE 60 U/L (40-136); CREATININE SERUM 1.04 MG/DL (0.60-1.30); GFR ESTIMATED > 60
[2020-07-27 16:10] LABS: BUN/CREATININE RATIO 13
[2020-07-27 16:12] LABS: ALANINE AMINOTRANSFERASE 31 U/L (0-55); MAGNESIUM 2.2 MG/DL (1.6-2.4)
[2020-07-27 16:13] LABS: LIPASE 12 U/L (8-78)
[2020-07-27] MEDS ORDERED: LIDOCAINE 2% VISCOUS 15 ML UDC PO ONE (16:45)
[2020-07-27] MEDS ORDERED: ONDANSETRON 4 MG/2 ML (SDV) Z0FRAN IVP ONE (16:45)
[2020-07-27] MEDS ORDERED: ANTACID SUSP 30 ML UDC (MYLANTA) PO ONE (16:45)
[2020-07-27] MEDS ORDERED: FAMOTIDINE 20MG/2ML IV (PEPCID) IVP ONE (16:45)
--- NOTE | 2020-07-27 17:35 | ED Chest Pain ---
General Chief Complaint: Chest Pain Stated Complaint: CP X 1 DAY/HX ANXIETY AND HEART MURMUR Nursing Triage Note: PT CO OF CHEST PAIN 8/10 FOR APPROX 1 MONTH WHEN FOUND OUT HE HAS A HEART MURMUR. ANXIETY AND DEPRESSION. CP REPRODUCABLE. PT STATES HAS ALSO HAD LOSS OF FAMILY MEMBERS THIS YEAR. PT STATES PAIN GOES AWAY WHILE SLEEPING Nursing Sepsis Screen: No Definite Risk Source: patient Exam Limitations: no limitations History of Present Illness Date Seen by Provider: July 27, 2020 Time Seen by Provider: 15:38 Initial Comments This 25-year-old young man presents to the emergency room with epigastric and chest pain intermittently for the past 6 months. He reports significant amounts of anxiety over the past 6 months since he went to [place] and his father . He has had multiple losses in his family in the recent past. He struggles with anxiety. He also reports problems with acid reflux and he takes antiacid me dication on an inconsistent basis. He has tried multiple antidepressants and anxiolytics such as BuSpar but did not tolerate the side effects well. He tried Xanax at one point in time but his prescriber did not continue due to strong family history of substance abuse. Pain is sometimes worse with inspiration. He is quite concerned about his heart because of his father's from heart disease. Allergies and Home Medications Allergies Coded Allergies: No Known Drug Allergies (Unverified , 01/14/11) Home Medications No Active Prescriptions or Reported Meds Patient Home Medication List Home Medication List Reviewed: Yes Review of Systems Review of Systems Constitutional: no symptoms reported EENTM: No Symptoms Reported Respiratory: See HPI Cardiovascular: See HPI Gastrointestinal: See HPI Genitourinary: No Symptoms Reported Musculoskeletal: no symptoms reported Skin: no symptoms reported Psychiatric/Neurological: See HPI Endocrine: No Symptoms Reported Hematologic/Lymphatic: No Symptoms Reported Past Tsxqbjd-Wzgmnv-Breyjr Hx Past Med/Social Hx: Reviewed Nursing Past Med/Soc Hx Patient Social History Alcohol Use: Denies Use Drug of Choice: marijuana Smoking Status: Current Everyday Smoker Type Used: Cigarettes 2nd Hand Smoke Exposure: Yes Recent Infectious Disease Expo: No Recent Hopitalizations: No Immunizations Up To Date Tetanus Booster (TDap): Less than 5yrs PED Vaccines UTD: Yes Date of Influenza Vaccine: Jan 13, 2014 Seasonal Allergies Seasonal Allergies: No Past Medical History Surgeries: Yes (tubes in ears) Ear Surgery Respiratory: Yes Asthma Cardiac: No Neurological: Yes Headaches /Migraines Reproductive Disorders: No Genitourinary: No Gastrointestinal: Yes Gastroesophageal Reflux Musculoskeletal: No Endocrine: No HEENT: No Cancer: No Psychosocial: Yes Anxiety, Depression Integumentary: No Blood Disorders: No Family Medical History Reviewed and Corrections made Heart Disease, Psychiatric Problems (Substance abuse) Physical Exam Vital Signs Vital Signs - First Documented Capillary Refill : Less Than 3 Seconds Height, Weight, BMI Height: 5'8.00" Weight: 175lbs. oz. 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 Skin: Normal Color, Warm/Dry Procedures/Interventions Suture Size: 4-0 Progress/Results/Core Measures Results/Orders Lab Results Laboratory Tests Test 07/27/20 15:40 Range/Units White Blood Count 6.7 4.3-11.0 10^3/uL Red Blood Count 5.14 4.30-5.52 10^6/uL Hemoglobin 16.0 13.3-17.7 g/dL Hematocrit 47 40-54 % Mean Corpuscular Volume 91 80-99 fL Mean Corpuscular Hemoglobin 31 25-34 pg Mean Corpuscular Hemoglobin Concent 34 32-36 g/dL Red Cell Distribution Width 11.6 10.0-14.5 % Platelet Count 237 130-400 10^3/uL Mean Platelet Volume 8.5 L 9.0-12.2 fL Immature Granulocyte % (Auto) 0 % Neutrophils (%) (Auto) 50 42-75 % Lymphocytes (%) (Auto) 37 12-44 % Monocytes (%) (Auto) 12 0-12 % Eosinophils (%) (Auto) 1 0-10 % Basophils (%) (Auto) 0 0-10 % Neutrophils # (Auto) 3.4 1.8-7.8 10^3/uL Lymphocytes # (Auto) 2.5 1.0-4.0 10^3/uL Monocytes # (Auto) 0.8 0.0-1.0 10^3/uL Eosinophils # (Auto) 0.1 0.0-0.3 10^3/uL Basophils # (Auto) 0.0 0.0-0.1 10^3/uL Immature Granulocyte # (Auto) 0.0 0.0-0.1 10^3/uL Prothrombin Time 12.4 12.2-14.7 SEC INR Comment 0.9 0.8-1.4 Activated Partial Thromboplast Time 27 24-35 SEC Sodium Level 141 135-145 MMOL/L Potassium Level 3.8 3.6-5.0 MMOL/L Chloride Level 105 98-107 MMOL/L Carbon Dioxide Level 28 21-32 MMOL/L Anion Gap 8 5-14 MMOL/L Blood Urea Nitrogen 14 7-18 MG/DL Creatinine 1.04 0.60-1.30 MG/DL Estimat Glomerular Filtration Rate > 60 BUN/Creatinine Ratio 13 Glucose Level 110 H 70-105 MG/DL Calcium Level 9.3 8.5-10.1 MG/DL Corrected Calcium 8.9 8.5-10.1 MG/DL Magnesium Level 2.2 1.6-2.4 MG/DL Total Bilirubin 0.5 0.1-1.0 MG/DL Aspartate Amino Transf (AST/SGOT) 25 5-34 U/L Alanine Aminotransferase (ALT/SGPT) 31 0-55 U/L Alkaline Phosphatase 60 40-136 U/L Myoglobin 24.9 10.0-92.0 NG/ML Troponin I < 0.028 <0.028 NG/ML Total Protein 7.9 6.4-8.2 GM/DL Albumin 4.5 3.2-4.5 GM/DL Lipase 12 8-78 U/L My Orders Orders - JOURDAN FISHMAN MD Cbc With Automated Diff (07/27/20 15:54) Magnesium (07/27/20 15:54) Chest 1 View, Ap/Pa Only (07/27/20 15:54) Ekg Tracing (07/27/20 15:54) Comprehensive Metabolic Panel (07/27/20 15:54) Myoglobin Serum (07/27/20 15:54) Protime With Inr (07/27/20 15:54) Partial Thromboplastin Time (07/27/20 15:54) O2 (07/27/20 15:54) Monitor-Rhythm Ecg Trace Only (07/27/20 15:54) Ed Iv/Invasive Line Start (07/27/20 15:54) Lipase (07/27/20 15:54) Troponin I (07/27/20 15:54) Famotidine Injection (Pepcid Injection) (07/27/20 16:45) Ondansetron Injection (Zofran Injectio (07/27/20 16:45) Lidocaine 2% Viscous 15 Ml (Xylocaine Vi (07/27/20 16:45) Antacid Suspension (Mylanta Suspension (07/27/20 16:45) Medications Given in ED Vital Signs/I&O 07/27/20 07/27/20 07/27/20 15:34 15:34 17:39 Temp 35.8 Pulse 86 86 Resp 16 16 B/P (MAP) 137/94 (108) 143/100 (108) Pulse Ox 97 98 O2 Delivery Room Air Room Air Room Air Blood Pressure Mean: 108 Progress Progress Note : Progress Note Work-up was unremarkable. Symptoms improved with GI cocktail, Pepcid, and Zofran. Patient was educated about acid reflux, anxiety, and causes of atypical chest pain. See discharge instructions for further discussion. Initial ECG Impression Date: July 27, 2020 Initial ECG Impression Time: 15:37 Initial ECG Rate: 83 Initial ECG Rhythm: Normal Sinus Initial ECG Intervals: Normal Initial ECG Impression: Normal Comment Normal sinus rhythm with no ST elevation or depression. No abnormal intervals or axis deviation. Diagnostic Imaging Diagonstic Imaging: Xray Plain Films/CT/US/NM/MRI: chest Comments NAME: ROCHELLE RODRIGUEZ [facility] REC#: [id number] PT STATUS: REG ER : 1995 PHYSICIAN: JOURDAN FISHMAN MD ADMIT DATE: 07/27/20/ER Signed Date of Exam:07/27/20 CHEST 1 VIEW, AP/PA ONLY INDICATION: Chest pain Portable chest 4:07 PM Heart size and pulmonary vascularity are normal. Lungs are clear. There are no effusions or pneumothoraces. IMPRESSION: Negative chest Dictated by: Dictated on workstation # [id number] Dict: 07/27/20 1606 Trans: 07/27/20 1739 [facility] [id number] Interpreted by: ANA VELOZ MD Electronically signed by: ANA VELOZ MD 07/27/201738 Departure Impression Primary Impression: Atypical chest pain Additional Impressions: Epigastric pain Anxiety Disposition: 01 HOME, SELF-CARE Condition: Improved Departure-Patient Inst. Decision time for Depature: 17:32 Referrals: NO,LOCAL PHYSICIAN (PCP) Primary Care Physician DUNIA JONES MD Patient Instructions: Chest Pain That Is Not Caused by the Heart (DC) Add. Discharge Instructions: Follow-up with a primary care provider and mental health provider soon as possible. Counseling may be extremely beneficial for you given your recent family and social circumstances. Take a combination of omeprazole 20 mg twice daily and Pepcid (famotidine) 20 mg twice daily for at least 2 weeks. This should gradually improve your stomach and esophagus symptoms. Return to the emergency room if symptoms are worsening rather than improving or if you develop new symptoms such as vomiting. Avoid the following that can worsen gastritis and acid reflux: Eating large meals, eating close to bedtime, caffeine, carbonation, citrus fruits and juices, chocolate, alcohol, tobacco, marijuana, vaping, mints, spicy foods, fatty or greasy foods, NSAID medications such as ibuprofen and naproxen, or anything else you know irritate your stomach. Call with questions or concerns. All discharge instructions reviewed with patient and/or family. Voiced un derstanding. Scripts No Active Prescriptions or Reported Meds JOURDAN FISHMAN MD July 27, 2020 17:35
[2020-07-27 17:39] VITALS: BP 143/100
== END 2020-07-27 17:44 | disposition home or self-care (01) ==
LOC: EDUNIT# 15:29 → ER 15:31
DX: R07.89 Other chest pain (principal); F41.9 Anxiety disorder, unspecified; R10.13 Epigastric pain; F17.210 Nicotine dependence, cigarettes, uncomplicated
CPT/HCPCS: 36415; 71045; 80053; 83690; 83735; 83874; 84484; 85025; 85610; 85730; 93005; 93041

== ENCOUNTER 2021-03-06 10:17 | Emergency (ER) | payer SELFPAY ==
[~2021-03-06] VITALS: Ht 172 cm; Wt 77.0 kg
[2021-03-06] MEDS ORDERED: RX-AMOX/CLAV. (AUGMENTIN) 500MG TAB PPK#2 PO STA (10:57)
[2021-03-06] MEDS ORDERED: NAPR-1071 PO (11:00)
[2021-03-06] MEDS ORDERED: AMOX500C2 PO (11:00)
[2021-03-06] MEDS ORDERED: LIDOCAINE 2% VISCOUS 15 ML UDC PO ONE (11:00)
--- NOTE | 2021-03-06 11:00 | ED EENT ---
History of Present Illness General Chief Complaint: Dental Problems/Pain Stated Complaint: HEADACHE/NAUSEA Nursing Triage Note: PT STATES RT LOWER DENTAL PAIN SINCE YESTERDAY. Source: patient Exam Limitations: no limitations (EMLANY ZAYAS APRN) History of Present Illness Date Seen by Provider: Mar 06, 2021 Time Seen by Provider: 10:57 Initial Comments Right lower dental pain since last night Timing/Duration: abrupt Severity: moderate Location: dental Prearrival Treatment: no prearrival treatment Associated Symptoms: denies symptoms (MELANY ZAYAS APRN) Allergies and Home Medications Allergies Coded Allergies: No Known Drug Allergies (Unverified , 01/14/11) Patient Home Medication List Home Medication List Reviewed: Yes (MELANY ZAYAS APRN) Amoxicillin (Amoxicillin) 500 Mg Capsule, 500 MG PO TID Prescribed by: MELANY ZAYAS on 03/06/21 1100 Naproxen (Naprosyn) 500 Mg Tablet, 500 MG PO BID Prescribed by: MELANY ZAYAS on 03/06/21 1100 Review of Systems Review of Systems Constitutional: see HPI Eyes: No Symptoms Reported Ears: No Symptoms Reported Nose: no symptoms reported Mouth: see HPI Throat: no symptoms reported Respiratory: no symptoms reported Cardiovascular: no symptoms reported Musculoskeletal: no symptoms reported Skin: no symptoms reported (MELANY ZAYAS APRN) Past Tujjsfm-Vcnlqj-Vgejnb Hx Patient Social History Tobacco Use?: Yes Tobacco type used: Cigarettes Smoking Status: Current Someday Smoker Substance use?: Yes Substance type: Marijuana Alcohol Use?: No (MELANY ZAYAS APRN) Immunizations Up To Date Tetanus Booster (TDap): Less than 5yrs PED Vaccines UTD: Yes (MELANY ZAYAS APRN) Seasonal Allergies Seasonal Allergies: No (MELANY ZAYAS APRN) Past Medical History Surgeries: Yes (tubes in ears) Ear Surgery Respiratory: Yes Asthma Cardiac: No Neurological: Yes Headaches /Migraines Reproductive Disorders: No Genitourinary: No Gastrointestinal: Yes Gastroesophageal Reflux Musculoskeletal: No Endocrine: No HEENT: No Cancer: No Psychosocial: Yes Anxiety, Depression Integumentary: No Blood Disorders: No (MELANY ZAYAS APRN) Family Medical History Heart Disease, Psychiatric Problems (MELANY ZYAAS APRN) Physical Exam Vital Signs Vital Signs - First Documented 03/06/21 10:51 Temp 36.3 Pulse 76 Resp 18 B/P (MAP) 131/86 (101) Pulse Ox 98 O2 Delivery Room Air (MARILEEALFREDO Marta CHATTERJEE) Height, Weight, BMI Height: 5'8.00" Weight: 175lbs. oz. 79.038899nn; 26.00 BMI Method:Actual General Appearance: WD/WN, no apparent distress Eyes: bilateral eye normal inspection, bilateral eye PERRL, bilateral eye EOMI Ears: bilateral ear auricle normal, bilateral ear canal normal, bilateral ear TM normal Mouth/Throat: pharynx normal, other (Pericoronitis over the right lower molar) Neck: non-tender, full range of motion; No lymphadenopathy (R), No lymphadenopathy (L) Respiratory: no respiratory distress, no accessory muscle use Gastrointestinal: normal bowel sounds, non tender Neurologic/Psychiatric: alert, normal mood/affect, oriented x 3 Skin: normal color (MELANY ZAYAS APRN) Procedures/Interventions Suture Size: 4-0 (MELANY ZAYAS APRN) Progress/Results/Core Measures Results/Orders Blood Pressure Mean: 101 Departure Impression Primary Impression: Acute pericoronitis Additional Impression: Pain, dental Disposition: 01 HOME, SELF-CARE Condition: Stable Departure-Patient Inst. Decision time for Depature: 10:59 (MELANY ZAYAS APRN) Referrals: NO,LOCAL PHYSICIAN (PCP/Family) Primary Care Physician Patient Instructions: Dental Pain Add. Discharge Instructions: 1. Return to ER for any concerns 2. Follow-up with your doctor next week Apply the topical lidocaine as needed. Follow-up with your dentist. All discharge instructions reviewed with patient and/or family. Voiced understanding. Scripts Naproxen (Naprosyn) 500 Mg Tablet 500 MG PO BID, #30 TAB 0 Refills Prov: MELANY ZAYAS APRN 03/06/21 Amoxicillin (Amoxicillin) 500 Mg Capsule 500 MG PO TID, #15 CAP 0 Refills Prov: MELANY ZAYAS APRN 03/06/21 ATTENDING PHYSICIAN NOTE: I WAS PHYSICALLY PRESENT ER PHYSICIAN WHEN THIS PATIENT WAS IN ER, BUT I WAS NOT INVOLVED IN ANY DECISION MAKING OR ANY CARE OF THIS PATIENT. (ALFREDO HUNT DO) MELANY ZAYAS APRN Mar 06, 2021 11:00 ALFREDO HUNT DO Mar 07, 2021 06:02
[2021-03-06 11:16] VITALS: BP 131/86
== END 2021-03-06 11:16 | disposition home or self-care (01) ==
LOC: EDUNIT# 10:17 → ER 10:20
DX: K05.20 Aggressive periodontitis, unspecified (principal); J45.909 Unspecified asthma, uncomplicated; F17.210 Nicotine dependence, cigarettes, uncomplicated
CPT/HCPCS: 99282

== ENCOUNTER 2021-10-17 15:15 | Emergency (ER) | payer SELFPAY ==
[~2021-10-17] VITALS: Ht 170 cm; Wt 74.8 kg
[~2021-10-17 15:15] MED LIST changes: +NAPR-1071 PO
[2021-10-17 15:22] VITALS: BP 136/85
--- NOTE | 2021-10-17 15:55 | ED EENT ---
History of Present Illness General Chief Complaint: Dental Problems/Pain Stated Complaint: ABCESS TOOTH Nursing Triage Note: PT AMB TO ED BY POV WITH C/O R TOP DENTAL PAIN. REPORTS HE CHIPPED A TOOTH APPROX 6 MONTHS AGO AND HAS PAIN ON AND OFF SINCE. REPORTS THROBBING PAIN THE LAST FEW DAYS, COULD NOT GET INTO [facility] FOR 100+ DAYS. DENIES FEVER. Source: patient Exam Limitations: no limitations History of Present Illness Date Seen by Provider: Oct 17, 2021 Time Seen by Provider: 15:50 Initial Comments Patient is a 26-year-old male who presents to the emergency department today with a chief complaint of right upper dental pain. He states he was wrestling with one of his brothers about 6 months ago and graded his teeth. He states that he fractured one of his teeth. It did not start bothering him until a few days ago. He states he has been "eating 5 or 6 ibuprofen and Motrin" but it does not touch the pain. No fevers or chills. No other complaints of illness. He is not COVID vaccinated. He does smoke. Counseled on cessation. All other review of systems reviewed and negative except as stated Timing/Duration: gradual Severity: severe Location: dental Prearrival Treatment: over the counter meds Associated Symptoms: tooth pain Allergies and Home Medications Allergies Coded Allergies: No Known Drug Allergies (Unverified , 01/14/11) Patient Home Medication List Home Medication List Reviewed: Yes Amoxicillin (Amoxicillin) 500 Mg Capsule, 500 MG PO TID Prescribed by: MELANY ZAYAS on 03/06/21 1100 Naproxen (Naprosyn) 500 Mg Tablet, 500 MG PO BID Prescribed by: MELANY ZAYAS on 03/06/21 1100 Penicillin V Potassium (Penicillin V Potassium) 500 Mg Tablet, 500 MG PO QID Prescribed by: SERGIO CARRION on 10/17/21 7572 Review of Systems Review of Systems Constitutional: see HPI Eyes: No Symptoms Reported Ears: No Symptoms Reported Nose: no symptoms reported Mouth: pain Throat: no symptoms reported Cardiovascular: no symptoms reported Gastrointestinal: no symptoms reported Musculoskeletal: no symptoms reported Skin: no symptoms reported All Other Systems Reviewed Negative Unless Noted: Yes Past Swwuwgr-Europo-Invbsi Hx Patient Social History Tobacco Use?: Yes Smoking Status: Current Everyday Smoker Use of E-Cig and/or Vaping dev: No Substance use?: Yes Substance type: Marijuana Substance frequency: Couple times a week Alcohol Use?: No Pt feels they are or have been: No Immunizations Up To Date Tetanus Booster (TDap): Less than 5yrs PED Vaccines UTD: Yes Influenza Vaccine Up-to-Date: No; Not Current Seasonal Allergies Seasonal Allergies: No Past Medical History Surgeries: Yes (tubes in ears) Ear Surgery Respiratory: Yes Asthma Cardiac: No Neurological: Yes Headaches /Migraines Reproductive Disorders: No Genitourinary: No Gastrointestinal: Yes Gastroesophageal Reflux Musculoskeletal: No Endocrine: No HEENT: No Cancer: No Psychosocial: Yes Anxiety, Depression Integumentary: No Blood Disorders: No Family Medical History Heart Disease, Psychiatric Problems Physical Exam Vital Signs Vital Signs - First Documented 10/17/21 15:22 Temp 36.3 Pulse 102 Resp 18 B/P (MAP) 136/85 (102) Pulse Ox 100 O2 Delivery Room Air Height, Weight, BMI Height: 5'8.00" Weight: 175lbs. oz. 79.324667qf; 25.00 BMI Method:Actual General Appearance: WD/WN, no apparent distress Eyes: bilateral eye normal inspection, bilateral eye PERRL, bilateral eye EOMI Ears: bilateral ear auricle normal Nose: normal inspection Mouth/Throat: other (Percussive tenderness to right upper first molar. Significant gingivitis in the mouth. No palpable abscess or observable abscess, no fluctuance) Neck: supple, normal inspection Cardiovascular: regular rate, rhythm Respiratory: lungs clear, normal breath sounds, no respiratory distress, no accessory muscle use Skin: normal color, warm/dry Procedures/Interventions Dental Procedures: dental blo Suture Size: 4-0 Progress/Results/Core Measures Results/Orders My Orders Orders - SERGIO CARRION MD Lidocaine 1% Inj 20 Ml (Xylocaine 1% Inj (10/17/21 16:15) Benzocaine Extension Tube (Hurricaine Ex (10/17/21 16:15) Bupivacaine 0.5% Injection (Sensorcaine (10/17/21 16:15) Bupivacaine 0.5% Injection (Sensorcaine (10/17/21 16:06) Vital Signs/I&O 10/17/21 15:22 Temp 36.3 Pulse 102 Resp 18 B/P (MAP) 136/85 (102) Pulse Ox 100 O2 Delivery Room Air Blood Pressure Mean: 102 Progress Progress Note : Time: 16:18 Progress Note dental block with 1.5cc 1% plain lido and 0.5% bupivicaine 1.5cc (hurricane spray used for topical anesthesia) Departure Impression Primary Impression: Pain, dental Disposition: HOME, SELF-CARE Condition: Stable Departure-Patient Inst. Decision time for Depature: 15:57 Referrals: [facility] [place]YSICIAN (PCP) Primary Care Physician Patient Instructions: Tooth Decay, Adult (DC), Dental Pain ED Add. Discharge Instructions: You can try a little [id number]-opvhdzz DENTAL FILLING. You should be able to find this at [facility] pharmacy. Apply this to the tooth as directed. Pain medication as needed. Do not drive and take the tramadol. Use a good Listerine Oral Rinse twice a day. Hammett 2-3 times a day. Take the antibiotics as directed - finish the entire course. You should also continue taking over the counter Ibuprofen (3-4 pills is 600- 800mg) ever 8 hours *always with food* for pain. Scripts Tramadol HCl (Tramadol HCl) 50 Mg Tablet 50 MG PO Q6H PRN for PAIN, #10 TAB 0 Refills Prov: SERGIO CARRION MD 10/17/21 Penicillin V Potassium (Penicillin V Potassium) 500 Mg Tablet 500 MG PO QID, #40 TAB Prov: SERGIO CARRION MD 10/17/21 SERGIO CARRION MD Oct 17, 2021 15:55
[2021-10-17] MEDS ORDERED: PENI500T PO (15:59)
[2021-10-17] MEDS ORDERED: BUPIVACAINE 0.5% 30 ML (SENSORCAINE) VIAL ONE (16:06)
[2021-10-17] MEDS ORDERED: HURRICAINE EXT TUBE (BENZOCAINE) XX ONE (16:15)
[2021-10-17] MEDS ORDERED: BUPIVACAINE 0.5% 30 ML (SENSORCAINE) VIAL INJ ONE (16:15)
[2021-10-17] MEDS ORDERED: LIDOCAINE 1% INJ 20 ML VIAL INJ ONE (16:15)
[2021-10-17] MEDS ORDERED: BUP/EPI 0.5% 1:200,000 (SENSORCAINE) 30 ML VIAL INJ ONE (16:15)
[2021-10-17] MEDS ORDERED: TRM50T PO (16:19)
== END 2021-10-17 16:24 | disposition home or self-care (01) ==
LOC: EDUNIT# 15:15 → ER 15:16
DX: K08.89 Other specified disorders of teeth and supporting structures (principal); F17.200 Nicotine dependence, unspecified, uncomplicated; Z28.310 Unvaccinated for COVID-19
CPT/HCPCS: 99282

== ENCOUNTER 2022-11-22 09:07 | Emergency (ER) | payer SELFPAY ==
[~2022-11-22] VITALS: Ht 170 cm; Wt 75.0 kg
[~2022-11-22 09:07] MED LIST changes: +PENI500T PO; +TRM50T PO
[2022-11-22] MEDS ORDERED: AZIT250T12 PO (10:04)
--- NOTE | 2022-11-22 10:05 | ED Cough/URI ---
General Chief Complaint: Cough/Cold/Flu Symptoms Stated Complaint: HEADACHE | SOB | FLU-LIKE SYMPTOMS Nursing Triage Note: pt states cough, congestion, sob for a couple days Source: patient Exam Limitations: no limitations History of Present Illness Date Seen by Provider: Nov 22, 2022 Time Seen by Provider: 10:00 Initial Comments Very pleasant otherwise healthy 27-year-old male presents with sinus congestion, sinus headache, sore throat and overall not feeling well for the past few days. No fever. States he does have seasonal allergies he is not on any allergy medication. Will swab for COVID and influenza as he states his boss sent him here for that as he has family coming into town and did not want to risk infection of his family members. We will obtain COVID and influenza swab. Timing/Duration: getting worse Severity/Quality: no cough Prior Episodes/Possible Cause: allergen exposure, unknown cause Associated Symptoms: facial pain, headache, nasal congestion, sinus infection, sore throat Allergies and Home Medications Allergies Coded Allergies: No Known Drug Allergies (Unverified , 01/14/11) Patient Home Medication List Home Medication List Reviewed: Yes Amoxicillin (Amoxicillin) 500 Mg Capsule, 500 MG PO TID Prescribed by: MELANY ZAYAS on 03/06/21 1100 Azithromycin (Azithromycin) 250 Mg Tablet, 250 MG PO UD Prescribed by: Rubi Montoya on 11/22/22 1004 Naproxen (Naprosyn) 500 Mg Tablet, 500 MG PO BID Prescribed by: MELANY ZAYAS on 03/06/21 1100 Penicillin V Potassium (Penicillin V Potassium) 500 Mg Tablet, 500 MG PO QID Prescribed by: SERGIO CARRION on 10/17/21 1559 Tramadol HCl (Tramadol HCl) 50 Mg Tablet, 50 MG PO Q6H PRN for PAIN Prescribed by: SERGIO CARRION on 10/17/21 1620 Review of Systems Review of Systems Constitutional: see HPI EENTM: nose congestion, throat pain; No blurred vision, No double vision Respiratory: see HPI; No short of breath, No stridor Cardiovascular: see HPI; No edema, No palpitations, No syncope Gastrointestinal: no symptoms reported; No diarrhea, No nausea Genitourinary: no symptoms reported; No hematuria, No pain Musculoskeletal: no symptoms reported Skin: no symptoms reported Psychiatric/Neurological: No Symptoms Reported; Denies Paresthesia, Denies Seizure, Denies Tingling Hematologic/Lymphatic: No Symptoms Reported; Denies Anemia, Denies Blood Clots, Denies Other Immunological/Allergic: see HPI, pollen allergy; denies transplant All Other Systems Reviewed Negative Unless Noted: Yes Past Aleupfg-Byuuaa-Clepje Hx Patient Social History Tobacco Use?: Yes Tobacco type used: Cigarettes Smoking Status: Current Everyday Smoker Substance use?: Yes Substance type: Marijuana Alcohol Use?: No Immunizations Up To Date Tetanus Booster (TDap): Less than 5yrs PED Vaccines UTD: Yes Seasonal Allergies Seasonal Allergies: No Past Medical History Surgeries: Yes (tubes in ears) Ear Surgery Respiratory: Yes Asthma Cardiac: No Neurological: Yes Headaches /Migraines Reproductive Disorders: No Genitourinary: No Gastrointestinal: Yes Gastroesophageal Reflux Musculoskeletal: No Endocrine: No HEENT: No Cancer: No Psychosocial: Yes Anxiety, Depression Integumentary: No Blood Disorders: No Family Medical History Heart Disease, Psychiatric Problems Physical Exam Vital Signs - First Documented 11/22/22 09:14 Temp 36.8 Pulse 79 Resp 18 B/P (MAP) 132/92 (105) Pulse Ox 99 Capillary Refill : Height: 5'8.00" Weight: 175lbs. oz. 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, no motor/sensory deficits, alert, normal mood/affect, oriented x 3 Skin: normal color, warm/dry Lymphatic: no adenopathy Procedures/Interventions Dental Procedures: dental blo Suture Size: 4-0 Progress/Results/Core Measures Suspected Sepsis SIRS Temperature: Pulse: 79 Respiratory Rate: 18 Blood Pressure 132 /92 Mean: 105 Results/Orders Lab Results Laboratory Tests Test 11/22/22 09:34 Range/Units Influenza Type A (RT-PCR) Not Detected Not Detecte Influenza Type B (RT-PCR) Not Detected Not Detecte SARS-CoV-2 RNA (RT-PCR) Not Detected Not Detecte My Orders Orders - RUBI MONTOYA DO Influenza A And B By Pcr (11/22/22 09:32) Covid 19 Inhouse Test (11/22/22 09:32) Vital Signs/I&O 11/22/22 09:14 Temp 36.8 Pulse 79 Resp 18 B/P (MAP) 132/92 (105) Pulse Ox 99 Capillary Refill : Blood Pressure Mean: 105 Progress Note : Time: 10:03 Progress Note Patient here for COVID and influenza swab per his boss's request. Patient does have seasonal allergies did discuss [id number] allergy medication for symptom control however due to tenderness over frontal and sphenoidal sinuses and overall not feeling well I will treat with azithromycin for acute sinusitis. Patient agrees denies any other significant symptoms no further needs or concerns. We will provide him a note off work today as he states he will be fine to go back tomorrow. COVID and influenza negative Departure Impression Primary Impression: Sinusitis Qualified Codes: J01.11 - Acute recurrent frontal sinusitis Disposition: HOME, SELF-CARE Condition: Stable Departure-Patient Inst. Referrals: NO,LOCAL PHYSICIAN (PCP/Family) Primary Care Physician Patient Instructions: Sinusitis in adults, Sinus Headache (DC) Scripts Azithromycin (Azithromycin) 250 Mg Tablet 250 MG PO UD, #6 TAB TAKE 2 TABLETS ON DAY ONE THEN TAKE 1 TABLET DAILY FOR FOUR MORE DAYS Prov: RUBI MONTOYA DO 11/22/22 RUBI MONTOYA DO Nov 22, 2022 10:05
[2022-11-22 10:23] VITALS: BP 132/92
== END 2022-11-22 10:24 | disposition home or self-care (01) ==
LOC: EDUNIT# 09:07 → ER 09:09
DX: J32.9 Chronic sinusitis, unspecified (principal); F17.210 Nicotine dependence, cigarettes, uncomplicated; Z20.822 Contact with and (suspected) exposure to COVID-19
CPT/HCPCS: 87636; 99283